=== PATIENT | female | born 1945 | race Caucasian/White ===

== ENCOUNTER 2019-04-03 12:25 | Inpatient (IN) ==
[2019-04-03 13:47] LABS: BUN Creatinine Ratio 19.9 (10-20); Calcium 9.5 mg/dl (8.5-10.1); Creatinine Clr Calc Pharmacy 42.8 ml/min; Est GFR (Non-African American) 43.2; Potassium 3.9 mmol/L (3.5-5.1)
[2019-04-03 13:49] LABS: INR 1.1 (0.9-1.1); Partial Thromboplastin Ratio 0.8; Prothrombin Time 10.9 Seconds (9.0-12.0)
[2019-04-03] MEDS ORDERED: IOVERSOL 100ml IV PRN (14:11)
[2019-04-03 14:22] LABS: Basophils # (auto) 0.01 K/uL (0-0.2); Basophils % (auto) 0.1 %; Eosinophils # (auto) 0.08 K/uL (0-0.5); Eosinophils % (auto) 0.7 %; Hematocrit (blood only) 35.2 % (37-47); Hemoglobin 11.9 g/dL (12.0-16.0); Immature Granulocytes # (auto) 0.08 K/uL (0.00-0.02); Immature Granulocytes % (auto) 0.7 %; Lymphocytes % (auto) 7.4 %; Mean Corpuscular Hemoglobin 30.1 pg (25-34); Mean Corpuscular Hgb Conc 33.8 g/dL (32-36); Mean Corpuscular Volume 89.1 fL (80-100); Mean Platelet Volume 12.6 fL (7.4-10.4); Monocytes # (auto) 0.62 K/uL (0.11-0.59); Monocytes % (auto) 5.7 %; Neutrophils % (auto) 85.4 %; Platelet Count 150 K/uL (130-400); RDW Coefficient of Variation 12.8 % (11.5-14.5); RDW Standard Deviation 41.4 fL (36.4-46.3); Red Blood Count 3.95 M/uL (4.2-5.4); White Blood Count 10.79 K/uL (4.8-10.8)
--- NOTE | 2019-04-03 14:37 | CT Scan Report ---
CT SCAN OF THE CERVICAL SPINE CLINICAL HISTORY: Trauma. Fall down stairs. COMPARISON STUDY: No priors. TECHNIQUE: CT scan of the cervical spine is performed from the skull base to the upper thoracic spine . Images are reviewed in the axial, sagittal, and coronal planes. IV contrast was not administered fo r this examination. A dose lowering technique was utilized adhering to the principles of ALARA. CT DOSE: 2079.43 mGy.cm FINDINGS: Skeletal structures: The skeletal structures are osteopenic. There is a moderate acute superior endpl ate compression fracture of C7. This extends into the posterior elements on the right, involving the pedicle and right facet. Fracture also involves the right lamina of C7. There is also fracture involv ing the inferior facet of C6 on the right. There is also a fracture at the tip of the right transvers e process of C6 seen on axial image #364. There is likely a small avulsion fracture identified along the posterior/inferior aspect of the left lateral mass of C1, best seen on axial image #137 and coron al image #40. Vertebral body height is maintained from C2-C6. Alignment is preserved. There is straig htening of the cervical lordosis. Anterior osteophytes are seen throughout. The odontoid process and lateral masses are intact. The atlantoaxial articulation is preserved. The spinous processes appear i ntact. Intervertebral discs: There is moderate to advanced disc space narrowing seen at C4-C5 and C5-C6. Mod erate disc space narrowing is seen at C3-C4. Central canal: Posterior disc osteophyte complexes at C4-C5 and C5-C6 likely contribute to acquired c ompromise of the central canal. Soft tissues: There is atherosclerotic calcification of the carotid bulbs. There is prevertebral soft tissue edema at C7. There is intramuscular hemorrhage identified within the right lateral paraspinou s musculature with surrounding inflammation this extends from C4-C5 to C7-T1. Calvarium: There is a nonobstructed fracture of the right occipital condyle, best seen on axial image #100. The visualized calvarium at the skull base otherwise appears intact. Brain parenchyma: Partially visualized brain parenchyma the skull base is within normal limits. Sinuses and mastoids: The visualized paranasal sinuses are clear. The mastoid air cells are well pneu matized. Lung apices: Clear as visualized. IMPRESSION: 1. There is a nondistracted fracture of the right occipital condyle. 2. There is a moderate acute compression fracture of C7. No retropulsed fragments are identified. 3. The C7 fracture involves the posterior elements on the right including the pedicle, lamina, and fa cet joint. This may be unstable. 4. There is also fracture involving the right inferior facet joint of C6. 5. There is fracture at the tip of the right transverse process of C6. 6. There is likely a small avulsion fracture from the posterior/inferior aspect of the left lateral m ass of C1. 7. There is intramuscular hemorrhage identified within the right lateral paraspinous musculature. Electronically signed by: Anish Salinas M.D. 04/03/2019 2:34 PM
--- NOTE | 2019-04-03 14:38 | CT Scan Report ---
CT SCAN OF THE BRAIN WITHOUT IV CONTRAST CLINICAL HISTORY: Trauma. Fall down stairs. COMPARISON STUDY: No priors. TECHNIQUE: Unenhanced axial CT scan of the brain is performed from the vertex to the skull base. A do se lowering technique was utilized adhering to the principles of ALARA. FINDINGS: Brain parenchyma: There are age-related involutional changes noting moderate subcortical and periven tricular microangiopathic change. There is no hemorrhage, mass effect, or evidence of acute territori al ischemia by CT criteria. Andrade-white matter differentiation is preserved. No extra-axial fluid ellen ection is seen. Ventricles, sulci, cisterns: Prominent secondary to involutional change. Intracranial vasculature: There is atherosclerotic calcification of the cavernous carotid and vertebr al arteries. Calvarium: Skeletal structures are osteopenic. No depressed calvarial fracture is identified. Soft tissues: Scalp hematoma overlies the left convexity towards the vertex. There is also a left occ ipital scalp contusion. Sinuses and mastoids: The visualized paranasal sinuses are clear. The mastoid air cells are well pneu matized. Orbits: The bony orbits are grossly intact. There are bilateral ocular lens implants. IMPRESSION: 1. There is no hemorrhage, mass effect, or evidence of acute territorial ischemia by CT criteria. 2. Scalp injuries as above. Electronically signed by: Anish Salinas M.D. 04/03/2019 2:37 PM
--- NOTE | 2019-04-03 14:48 | CT Scan Report ---
CT SCAN OF THE ABDOMEN AND PELVIS WITH IV CONTRAST CLINICAL HISTORY: Trauma. Fall down stairs. COMPARISON STUDY: No priors. TECHNIQUE: Following the IV administration of 94 cc of Optiray 320, CT scan of the abdomen and pelvi s is performed from the lung bases to the proximal femora. Images are reviewed in the axial, sagittal , and coronal planes. IV contrast was administered without complication. A dose lowering technique wa s utilized adhering to the principles of ALARA. FINDINGS: Lung bases: The heart is normal in size and without pericardial effusion. The coronary arteries are d ensely calcified. The lung bases are clear. There is no basilar pneumothorax. Liver: The contrast-enhanced liver is normal in size, contour, and attenuation. There is mild to mode rate intrahepatic biliary ductal dilatation. The hepatic veins and portal veins are patent. Gallbladder: Surgically absent. The common bile duct is dilated measuring up to 2 cm in diameter. Spleen: Normal in size and attenuation. Pancreas: Unremarkable. Adrenal glands: Unremarkable. Kidneys: The contrast enhanced kidneys demonstrate cortical atrophy and are without hydronephrosis. T he kidneys enhance symmetrically. A 2.0 cm cyst is noted in the left kidney. Abdominal vasculature: The abdominal aorta is normal in course and caliber noting moderate to advance d atherosclerotic calcification. Bowel: There is rectosigmoid fecal impaction and moderate constipation. No bowel obstruction is seen. There is moderate colonic diverticulosis without CT evidence of acute diverticulitis a large duodena l diverticulum is noted. The appendix is not identified and reported surgically absent. Peritoneum: There is no intraperitoneal free air or abdominal ascites. Lymphadenopathy: None. Pelvic viscera: Evaluation of the pelvis is degraded by streak artifact from bilateral hip arthroplas ties. The bladder, uterus, and adnexa are normal as visualized. Skeletal structures: The skeletal structures are osteopenic. There is mokm-sf-fydkhode lumbosacral sp ondylosis and scoliosis. No lytic or blastic lesions are seen. Bilateral hip arthroplasties are in pl kate. Soft tissues: Soft tissue contusion is noted in the left gluteal region and in the lower back. IMPRESSION: 1. There is no evidence of solid organ injury in the abdomen or pelvis. 2. No fracture is identified. 3. Soft tissue contusion is noted in the left gluteal region and in the lower back. 4. There is rectosigmoid fecal impaction and moderate constipation. 5. There is intra and extrahepatic biliary ductal dilatation, likely related to previous cholecystect carolyn. Correlation with serum bilirubin levels is recommended. 6. Additional findings as above. Electronically signed by: Anish Salinas M.D. 04/03/2019 2:46 PM
--- NOTE | 2019-04-03 15:32 | XRay Report ---
SINGLE VIEW PELVIS; SINGLE VIEW RIGHT HIP; 3 VIEWS LEFT FEMUR CLINICAL HISTORY: Fall. FINDINGS: An AP view of the pelvis, and AP view of the right hip, with AP, frog-leg, and lateral view s of the left hip are obtained. Correlation is made with pelvic CT performed the same day 04/03/2019. The skeletal structures are osteopenic. There is no radiographic evidence of fracture involving the h ips or bony pelvis. There is no radiographic evidence of left femoral fracture. Bilateral hip arthrop lasties are in near-anatomic alignment. No periprosthetic lucency is identified. Bony overgrowth is n oted along the lesser trochanter of the left femur. Degenerative sclerosis is noted in the sacroiliac joints. Lumbosacral spondylosis is partially imaged. There is atherosclerotic calcification of the f emoral arteries. Excreted IV contrast fills the bladder. No bowel obstruction is seen. IMPRESSION: 1. There is no radiographic evidence of acute fracture involving the hips or bony pelvis. 2. There is no radiographic evidence of left femoral fracture. Electronically signed by: Anish Salinas M.D. 04/03/2019 3:31 PM
[2019-04-03] MEDS ORDERED: MoRPHine SULFATE 4 MG/ML 1 ML CARP\\VIAL IV STA (15:35)
[2019-04-03] MEDS ORDERED: ONDANSETRON INJ 2 MG/ML 2 ML VIAL IV STA (15:35)
--- NOTE | 2019-04-03 15:38 | XRay Report ---
SINGLE VIEW CHEST CLINICAL HISTORY: Fall. FINDINGS: An AP, portable, supine chest radiograph is obtained. No prior studies are available for co mparison at the time of dictation. The examination is degraded by portable technique and apical lordo tic positioning. The heart is top normal for projection noting atherosclerotic calcification of the t horacic aorta. The lungs and pleural spaces are clear. No pneumothorax is seen. The skeletal structur es are osteopenic. The bony thorax is grossly intact. IMPRESSION: No acute cardiopulmonary abnormality is identified. Electronically signed by: Anish Salinas M.D. 04/03/2019 3:36 PM
--- NOTE | 2019-04-03 15:40 | XRay Report ---
RIGHT SHOULDER 3 VIEWS CLINICAL HISTORY: Fall. Right shoulder injury. FINDINGS: 3 views of the right shoulder are obtained. No prior studies are available for comparison a t the time of dictation. The skeletal structures are osteopenic. There is no radiographic evidence of right shoulder fracture or dislocation. Minimal productive change is noted at the acromioclavicular joint. The glenohumeral articulation is preserved. Mild spurring is seen along the inferior aspect of the humeral head. Degenerative sclerosis is noted in the greater tuberosity. The overlying soft tiss ues are within normal limits. Visualized right upper lobe lung parenchyma appears clear. IMPRESSION: No acute bony abnormality is identified. Electronically signed by: Anish Salinas M.D. 04/03/2019 3:39 PM
--- NOTE | 2019-04-03 15:42 | XRay Report ---
LEFT ELBOW 3 VIEWS CLINICAL HISTORY: Fall with left elbow injury. FINDINGS: 3 views of the left elbow are obtained. No prior studies are available for comparison at th e time of dictation. The examination is degraded by inability to properly position the patient. The s keletal structures are osteopenic. There is a minimally distracted fracture through the olecranon pro cess of the ulna with overlying soft tissue edema. No additional fracture is clearly identified. No d islocation is seen. The presence of a joint effusion cannot be assessed due to lack of a true lateral examination. IMPRESSION: 1. There is a minimally distracted fracture through the olecranon process of the ulna with overlying soft tissue edema. 2. No additional fracture is clearly identified. Electronically signed by: Anish Salinas M.D. 04/03/2019 3:41 PM
[2019-04-03] MEDS ORDERED: CLINDAMYCIN 300 MG in DEXTROSE 5% 50 ML IV ONE (16:41)
[2019-04-03] MEDS ORDERED: DIPHTHERIA/TETANUS/PERTUSSIS 0.5 ML SYR/VIAL IM ONE (17:14)
--- NOTE | 2019-04-03 18:19 | CT Scan Report ---
CT SCAN OF THE LEFT ELBOW WITHOUT IV CONTRAST CLINICAL HISTORY: Fall. Trauma. Open fracture. COMPARISON STUDY: Radiographs of the left elbow performed the same day 04/03/2019. TECHNIQUE: CT scan of the left elbow is performed from the distal humeral shaft to the proximal radiu s and ulna. Images are reviewed in the axial, sagittal, and coronal planes. 3-D reformats are created and assessed. IV contrast was not administered for this examination. A dose lowering technique was u tilized adhering to the principles of ALARA. CT DOSE: 282.55 mGy.cm FINDINGS: The skeletal structures are osteopenic. There is a comminuted fracture through the olecrano n process of the ulna with distracted fragments and intra-articular extension. The distal humerus and the proximal radius appear intact. There is no evidence of dislocation. There is a joint effusion, w ith small foci of gas within the joint space. Dorsal soft tissue injury and edema is noted. The regio nal musculature is normal as imaged. No radiodense foreign body is identified. IMPRESSION: 1. There is a comminuted fracture of the olecranon process as above with overlying soft tissue injury . 2. There is a joint effusion as well as gas within the joint space consistent with the reported histo ry of an open fracture. 3. No additional fracture is identified. Electronically signed by: Anish Salinas M.D. 04/03/2019 6:17 PM
[2019-04-03] MEDS ORDERED: BACITRACIN INJ 50,000 UNIT VIAL ONE (18:41)
--- NOTE | 2019-04-03 18:44 | History & Physical Report ---
Date of Service April 03, 2019 Assessment & Plan (1) C6 cervical fracture: CT cervical spines shows multiple fractures including a possibly unstable C6 fracture. I discussed these findings with Dr. Shore and received his recs. C-collar overnight, including sleeping & bedrest. I instructed her clearly to alert nursing if she feels there is any change in her strength or sensation in the hands/arms or legs/toes. I did discuss the area of intramuscular hemorrhage, and he felt this would be stable overnight. I also discussed the issues with Dr. Ho who agreed with these recommendations. - C-collar overnight - Full liquid diet given collar - Bedrest until cleared by Dr. Shore - Neurochecks Q4h - Pain control - Hold ASA (2) Elbow fracture, left: CT elbow on 04/03 shows comminuted fracture of the olecranon process as above with overlying soft tissue injury. - Plan for washout with Dr. Ho tonight - Follow up per orthopedics (3) Lupus: No current flare. Pain under control with opiate pain meds for her neck/elbow. - Continue Plaquenil (4) Arthritis: - Restart calcium and vitamin D once able to sit up more and swallow more easily. - Pain control with opiates given present surgical needs (5) Hypertension: BP is 112/60 in the ED. - Hold valsartan until after surgery and seen by Dr. Shore. - Monitor BP (6) DVT prophylaxis: SCDs - Low DVT risk per admission calculator & also chemoprophylaxis contraindicated with bleeding near cervical fractures and given she is going to OR tonight. History of Present Illness Primary Care Provider: NO PCP 73yo F w/ hx of arthritis and HTN who presents with cervical fractures after a fall down 10 steps. She reports she was at her son's house and turned the wrong direction in the dark and fell down 10 steps. She was brought to the ED and found to have cervical fractures in C1, C6, and C7 with the C6 fracture being possibly unstable. There was also intramuscular hemorrhage identified within the right lateral paraspinous musculature with surrounding inflammation this extends from C4-C5 to C7-T1 seen. She has completely normal sensation and motor skills in the fingers and hands on both sides. She also has an open fracture in the left elbow which Dr. Ho plans to wash-out tonight. She reports she is normally very health and works out at water aerobics for an hour 1-2 times per week without chest pain or shortness of breath. Allergies Allergy/AdvReac Type Severity Reaction Status Date / Time Penicillins Allergy Mild Hives Unverified 04/03/19 14:01 Home Medications Home Medications Medication Instructions Recorded Confirmed Type acetaminophen [Tylenol Arthritis 650 mg PO DAILY 04/03/19 04/03/19 History Pain] aspirin 81 mg PO DAILY 04/03/19 04/03/19 History calcium carbonate [Calcium 600] 600 mg PO DAILY 04/03/19 04/03/19 History cholecalciferol (vitamin D3) 1,000 unit PO DAILY 04/03/19 04/03/19 History [Vitamin D3] famotidine 20 mg PO BID 04/03/19 04/03/19 History hydroxychloroquine 200 mg PO BID 04/03/19 04/03/19 History rosuvastatin 40 mg PO DAILY 04/03/19 04/03/19 History valsartan 160 mg PO DAILY 04/03/19 04/03/19 History Past Med/Surg History Medical History Lupus (Chronic) Arthritis (Chronic) Hypertension Family History Other No significant family history Social History Preferred Language: Haitian Feels Safe at Home: Yes Smoking Status: Former smoker Review of Systems Constitutional: no fever, no chills and no sweats Eyes: no diplopia Ear, Nose, Mouth, Throat: no ear trauma, no nasal discharge and no dental pain Respiratory: no cough, no chest congestion and no dyspnea Cardiovascular: no chest pain, no dyspnea on exertion, no palpitations and no syncope Gastrointestinal: no abdominal pain, no belching, no constipation, no diarrhea/loose stools, no blood in stools and no melena Musculoskeletal: + neck pain and + joint pain; no back pain, no myalgia and no muscle weakness Integumentary: no rash, no skin ulcer and no erythema Neurologic: no loss of sensation, no numbness, no paresthesia, no lack of coordination, no tremor(s), no abnormal movements and no syncope Psychiatric: no depression and no anxiety Endocrine: no fatigue, no polydipsia and no polyphagia Results & Data Vital Signs (Past 12 Hours) Vital Signs Temp Pulse Resp BP Pulse Ox 04/03/19 18:10 97 04/03/19 18:00 96 04/03/19 17:50 89 L 04/03/19 17:45 97 04/03/19 17:20 83 20 91 04/03/19 17:10 85 17 95 04/03/19 17:01 79 98 04/03/19 17:00 79 112/59 L 95 04/03/19 16:50 80 94 04/03/19 16:40 94 H 15 98 04/03/19 16:31 78 15 96 04/03/19 16:30 74 20 88/52 L 97 04/03/19 16:20 82 16 99 04/03/19 16:10 81 19 100 04/03/19 16:02 91 H 17 97/64 L 98 04/03/19 16:00 85 19 100 04/03/19 15:59 100 04/03/19 14:40 100 04/03/19 14:35 100 04/03/19 14:34 145/67 H 100 04/03/19 13:50 76 17 100 04/03/19 13:40 76 19 99 04/03/19 13:30 78 18 100 04/03/19 13:20 73 23 04/03/19 13:10 79 16 97 04/03/19 13:03 78 29 H 99 04/03/19 12:36 77 19 149/75 H 99 04/03/19 12:17 36.5 C 79 18 149/75 H 99 PG Care Time/CCT Total # of Minutes Spent Total Time Spent with Patient: Total time spent is greater than 50% in coordination of care (as documented) at patient's floor/unit and/or counseling patient:
--- NOTE | 2019-04-03 18:56 | Anesthesiology Consultation ---
Date of Service April 03, 2019 Assessment & Plan Chart Review Chart Review: Acceptable Risk for Surgery Pt has multiple acute C spine fractures and open fracture left olecranon. Discussed with orthopedist who prescribed C spine fixation with hard collar and urgent surgical treatment of LUE. Consults Requested none ASA [id number] Proposed Anesthesia Anesthesia Type: General History Surgery Operation Date: 04/03/19 18:30 Proposed Procedures p Open Reduction Internal Fixation Afua - Ronaldo Ho MD Height/Weight Height: 5 ft 5 in Weight: 83.5 kg Allergies Allergy/AdvReac Type Severity Reaction Status Date / Time Penicillins Allergy Mild Hives Unverified 04/03/19 14:01 Medications Home Medications Medication Instructions Recorded Confirmed Last Taken acetaminophen [Tylenol Arthritis 650 mg PO DAILY 04/03/19 04/03/19 Unknown Pain] aspirin 81 mg PO DAILY 04/03/19 04/03/19 Unknown calcium carbonate [Calcium 600] 600 mg PO DAILY 04/03/19 04/03/19 Unknown cholecalciferol (vitamin D3) 1,000 unit PO DAILY 04/03/19 04/03/19 Unknown [Vitamin D3] famotidine 20 mg PO BID 04/03/19 04/03/19 Unknown hydroxychloroquine 200 mg PO BID 04/03/19 04/03/19 Unknown rosuvastatin 40 mg PO DAILY 04/03/19 04/03/19 Unknown valsartan 160 mg PO DAILY 04/03/19 04/03/19 Unknown Active Medications Generic Name Dose Route Start Last Admin Trade Name Freq PRN Reason Stop Dose Admin Ioversol 94 ml 04/03/19 14:11 04/03/19 14:12 Optiray 320 100ml IV 04/07/19 14:10 94 ml ONCE PRN Administration Interaction Checking Past Medical History Medical History Lupus (Chronic) Arthritis (Chronic) Hypertension Past Family History Family History Other No significant family history Social History Smoking Status: Former smoker Physical Exam Vital Signs Last Vital Signs Temp 36.5 C 04/03/19 12:17 Pulse 83 04/03/19 17:20 Resp 20 04/03/19 17:20 BP 112/59 L 04/03/19 17:00 Pulse Ox 97 04/03/19 18:10 Testing Laboratory Results 04/03/19 13:08 04/03/19 13:08 PT 10.9 Seconds (9.0-12.0) 04/03/19 13:08 INR 1.1 (0.9-1.1) 04/03/19 13:08 APTT 23.0 Seconds (21.0-31.0) 04/03/19 13:08 04/03/19 13:34 POC Glucose 105 H
[2019-04-03] MEDS ORDERED: PROPOFOL IV EMULSION 10 MG/ML 20 ML VIAL IV ONE (19:11)
[2019-04-03] MEDS ORDERED: MIDAZOLAM HCL 1 MG/ML 2ML VIAL ONE (19:11)
[2019-04-03] MEDS ORDERED: fentaNYL citrate 100 MCG/2 ML VIAL ONE (19:11)
--- NOTE | 2019-04-03 20:13 | Emergency Department Note ---
Entered by Burton Guaman acting as a scribe for Oni Duggan History of Present Illness General Chief complaint: Fall Time Seen by Provider: 04/03/19 12:57 Source: patient and other (ED nurse) History of Present Illness Onset (ago): hour(s) (earlier today) Location: upper extremity (pain from fall) Pain Consistency: + other (episode) Maximum Pain Intensity: 0 Relieved By: + none Associated symptoms: + denies other symptoms (abdominal pain) and + other (right shoulder pain, neck pain, back pain, and groin pain) The patient is a 73 year old F who presents to the Emergency Room with complaints of an episode of a fall that occurred earlier today. The patient states that today around noon, she thought that she was walking into a bathroom. She adds that the lights were not on and that it was hard to see. She notes that it was actually a flight of stairs and adds that she fell down them. The ED nurse states that the flight of stairs consisted of 10-12 stairs. The patient states that she is currently experiencing right shoulder pain, neck pain, back pain, and groin pain. She adds that the right side of her groin hurts more than the left. She denies that she is currently experiencing abdominal pain. She notes that she is currently on an arthritis spray, lupus medication, and acetaminophen. She denies being on a blood thinning medication. Home Medications Home Medications Medication Instructions Recorded Confirmed Type acetaminophen [Tylenol Arthritis 650 mg PO DAILY 04/03/19 04/03/19 History Pain] aspirin 81 mg PO DAILY 04/03/19 04/03/19 History calcium carbonate [Calcium 600] 600 mg PO DAILY 04/03/19 04/03/19 History cholecalciferol (vitamin D3) 1,000 unit PO DAILY 04/03/19 04/03/19 History [Vitamin D3] famotidine 20 mg PO BID 04/03/19 04/03/19 History hydroxychloroquine 200 mg PO BID 04/03/19 04/03/19 History rosuvastatin 40 mg PO DAILY 04/03/19 04/03/19 History valsartan 160 mg PO DAILY 04/03/19 04/03/19 History Allergies Allergy/AdvReac Type Severity Reaction Status Date / Time Penicillins Allergy Mild Hives Unverified 04/03/19 14:01 Past Med/Surg History Medical History Lupus (Chronic) Arthritis (Chronic) Hypertension Family History Other No significant family history Social History Preferred Language: Ukrainian Feels Safe at Home: Yes Smoking Status: Former smoker Review of Systems See HPI for pertinent positives & negatives. and A total of 10 systems reviewed and were otherwise negative Physical Exam Vital Signs Vital Signs - 24 hr 04/03/19 12:17 04/03/19 12:36 04/03/19 13:03 Temperature 36.5 C Temperature Source Oral Sepsis Recent Fever Within 48 Hours No Sepsis New/Unexplained Change in Mental Status No Sepsis Action Taken by Nursing No Action Required Pulse Rate 79 77 78 Pulse Rate from SpO2 Sensor 78 78 Pulse Rhythm Regular Pulse Strength Normal Respiratory Rate 18 19 29 H Respiratory Effort / Characteristics Non-Labored Spontaneous Respiratory Depth Normal Respiratory Pattern Regular Blood Pressure 149/75 H 149/75 H Blood Pressure Mean 99 99 Blood Pressure Position Lying Pulse Oximetry 99 99 99 Oxygen Delivery Method Room Air 04/03/19 13:10 04/03/19 13:20 04/03/19 13:30 Temperature Temperature Source Sepsis Recent Fever Within 48 Hours Sepsis New/Unexplained Change in Mental Status Sepsis Action Taken by Nursing Pulse Rate 79 73 78 Pulse Rate from SpO2 Sensor 79 79 Pulse Rhythm Pulse Strength Respiratory Rate 16 23 18 Respiratory Effort / Characteristics Respiratory Depth Respiratory Pattern Blood Pressure Blood Pressure Mean Blood Pressure Position Pulse Oximetry 97 100 Oxygen Delivery Method 04/03/19 13:40 04/03/19 13:50 04/03/19 14:34 Temperature Temperature Source Sepsis Recent Fever Within 48 Hours Sepsis New/Unexplained Change in Mental Status Sepsis Action Taken by Nursing Pulse Rate 76 76 Pulse Rate from SpO2 Sensor 77 77 86 Pulse Rhythm Pulse Strength Respiratory Rate 19 17 Respiratory Effort / Characteristics Respiratory Depth Respiratory Pattern Blood Pressure 145/67 H Blood Pressure Mean 93 Blood Pressure Position Pulse Oximetry 99 100 100 Oxygen Delivery Method 04/03/19 14:35 04/03/19 14:40 04/03/19 15:59 Temperature Temperature Source Sepsis Recent Fever Within 48 Hours Sepsis New/Unexplained Change in Mental Status Sepsis Action Taken by Nursing Pulse Rate Pulse Rate from SpO2 Sensor 85 83 87 Pulse Rhythm Pulse Strength Respiratory Rate Respiratory Effort / Characteristics Respiratory Depth Respiratory Pattern Blood Pressure Blood Pressure Mean Blood Pressure Position Pulse Oximetry 100 100 100 Oxygen Delivery Method 04/03/19 16:00 04/03/19 16:02 04/03/19 16:10 Temperature Temperature Source Sepsis Recent Fever Within 48 Hours Sepsis New/Unexplained Change in Mental Status Sepsis Action Taken by Nursing Pulse Rate 85 91 H 81 Pulse Rate from SpO2 Sensor 85 90 83 Pulse Rhythm Pulse Strength Respiratory Rate 19 17 19 Respiratory Effort / Characteristics Respiratory Depth Respiratory Pattern Blood Pressure 97/64 L Blood Pressure Mean 75 Blood Pressure Position Pulse Oximetry 100 98 100 Oxygen Delivery Method 04/03/19 16:20 04/03/19 16:30 04/03/19 16:31 Temperature Temperature Source Sepsis Recent Fever Within 48 Hours Sepsis New/Unexplained Change in Mental Status Sepsis Action Taken by Nursing Pulse Rate 82 74 78 Pulse Rate from SpO2 Sensor 82 74 78 Pulse Rhythm Pulse Strength Respiratory Rate 16 20 15 Respiratory Effort / Characteristics Respiratory Depth Respiratory Pattern Blood Pressure 88/52 L Blood Pressure Mean 64 Blood Pressure Position Pulse Oximetry 99 97 96 Oxygen Delivery Method 04/03/19 16:40 04/03/19 16:50 04/03/19 17:00 Temperature Temperature Source Sepsis Recent Fever Within 48 Hours Sepsis New/Unexplained Change in Mental Status Sepsis Action Taken by Nursing Pulse Rate 94 H 80 79 Pulse Rate from SpO2 Sensor 93 H 81 79 Pulse Rhythm Pulse Strength Respiratory Rate 15 Respiratory Effort / Characteristics Respiratory Depth Respiratory Pattern Blood Pressure 112/59 L Blood Pressure Mean 76 Blood Pressure Position Pulse Oximetry 98 94 95 Oxygen Delivery Method 04/03/19 17:01 04/03/19 17:10 04/03/19 17:20 Temperature Temperature Source Sepsis Recent Fever Within 48 Hours Sepsis New/Unexplained Change in Mental Status Sepsis Action Taken by Nursing Pulse Rate 79 85 83 Pulse Rate from SpO2 Sensor 79 85 83 Pulse Rhythm Pulse Strength Respiratory Rate 17 20 Respiratory Effort / Characteristics Respiratory Depth Respiratory Pattern Blood Pressure Blood Pressure Mean Blood Pressure Position Pulse Oximetry 98 95 91 Oxygen Delivery Method 04/03/19 17:45 04/03/19 17:50 04/03/19 18:00 Temperature Temperature Source Sepsis Recent Fever Within 48 Hours Sepsis New/Unexplained Change in Mental Status Sepsis Action Taken by Nursing Pulse Rate Pulse Rate from SpO2 Sensor 81 80 83 Pulse Rhythm Pulse Strength Respiratory Rate Respiratory Effort / Characteristics Respiratory Depth Respiratory Pattern Blood Pressure Blood Pressure Mean Blood Pressure Position Pulse Oximetry 97 89 L 96 Oxygen Delivery Method 04/03/19 18:10 Temperature Temperature Source Sepsis Recent Fever Within 48 Hours Sepsis New/Unexplained Change in Mental Status Sepsis Action Taken by Nursing Pulse Rate Pulse Rate from SpO2 Sensor 86 Pulse Rhythm Pulse Strength Respiratory Rate Respiratory Effort / Characteristics Respiratory Depth Respiratory Pattern Blood Pressure Blood Pressure Mean Blood Pressure Position Pulse Oximetry 97 Oxygen Delivery Method GENERAL: She is oriented to person, place, and time. She appears well-developed and well-nourished. She does not appear distressed. HENT: Exam performed. - Head: Normocephalic and atraumatic. - Right Ear: External ear normal. No mastoid tenderness. - Left Ear: External ear normal. No mastoid tenderness. - Mouth/Throat: The oropharynx is clear and moist. No trismus in the jaw. No dental abscesses or uvula swelling. No oropharyngeal exudate or tonsillar abscesses. EYES: Conjunctivae and EOM are normal. Pupils are equal, round, and reactive to light. Right eye exhibits no discharge. Left eye exhibits no discharge. No scleral icterus. NECK: In C-collar. CV: Normal rate, regular rhythm, normal heart sounds and intact distal pulses. There is no peripheral edema. Palpable radial pulses bue. PULM/CHEST: Effort normal and breath sounds normal. No respiratory distress. No stridor. She has no wheezes. She has no rales. Chest Wall: She exhibits no tenderness. ABD: The abdomen is soft. Bowel sounds are normal. She has no distension. No mass is present. There is no tenderness. There is no rebound, no guarding, no Jeronimo's sign and no tenderness at McBurney's point. Rovsig negative MUSC/SKEL: Pain on palpation of c-spine, no pain on palpation of t-spine or l- spine, pelvis is stable, pain on palpation of left elbow, pain on palpation of left pelvis, and pain on palpation of right shoulder. Small 1 cm laceration over the left elbow over the olecranon. There is no active bleeding or exposed bone. LYMPH: No cervical adenopathy. NEURO: She is alert and oriented to person, place, and time. She has normal strength. No cranial nerve deficit or sensory deficit. Coordination and gait normal. GCS eye subscore is 4. GCS verbal subscore is 5. GCS motor subscore is 6. cerbellar tests wnl. PSYCH: She has a normal mood and affect. Her behavior is normal. Judgment and thought content normal. Procedures FAST Exam FAST Exam 1: Fluid in Morison's pouch: No Fluid in Splenorenal Junction: No Fluid around bladder, Transverse view: No Fluid around bladder, Sagittal view: No Fluid in Pericardial Sac: No Gross Wall Motion Abnormality: No Study normal for this patient: Yes Images saved for further review: Yes Course 1257: The patient was evaluated in room B11B. A complete history and physical exam was performed. 1317: I performed a FAST exam on the patient which was negative. See procedure note. 1602: Vital signs stable. Patient still having significant amounts of pain. Analgesia ordered in the emergency department. Labs within normal limits CT of the head shows no hemorrhage or calvarial fracture. CT of the C-spine shows non-distracted fracture of the right occipital condyle. Moderate acute compression fracture of C7. No retropulsed fragments. C7 fracture involves the posterior elements including the right pedicle, lamina, and facet joint. Is also fracture of the right inferior facet of C6 and right transverse process of C6. Likely a small avulsion fracture from the posterior/inferior aspect of the lateral mass of C1. There is intramuscular hemorrhage identified within the right lateral paraspinous musculature. I reviewed the patient's case and CT reports verbatim with Dr. Shore, [facility] [place] [place]. He states that there is no emergent surgical intervention needed at this time and that the patient should be placed in a [place] J collar. Dr. Arndt said that the patient could follow-up with him in the clinic, however both the patient and I feel that the patient should be admitted for pain management as well as possible rehab. Dr. Arndt was comfortable with the patient be admitted to the hospitalist service with him on consult for the cervical structures. 1631: CT of the abdomen showed no evidence of solid injury in the abdomen or pelvis. X-rays of shoulder, femur, pelvis, and chest showed no traumatic injuries. X-ray of the elbow showed a minimally distracted fracture through the olecranon process of the ulna. Given the laceration over the elbow, this patient appears to have an open fracture and it appears to be Gustillo classification type I open fracture. I reviewed the patient's case with Dr. Ho, [facility] [place] [place]. He states that he wants to come into the ED to see the fracture and does not want me to close it right now. 1718: Dr. Ho evaluated the patient at bedside. He wants me to put the patient in a posterior splint with betadine. Patient has a severe history to penicillin and therefore Ancef will not be given and he said clindamycin was ordered. Dr. Ho states that he is okay with giving the patient clindamycin. He states that he wants a CT scan of the patient's elbow. He notes that he will take the patient to the OR for a washout. 1720: I reviewed the patient's case with Dr. Rivera, [facility] Hospitalist. He states he does not think that the patient should be admitted to his service as they have traumatic injuries. I did explain to him that both Dr. Shore ortho spine and Dr. Ho orthopedics agreed to be on consult and stated they were comfortable managing their respective orthopedic injuries at this facility. Dr. Rivera stated he will discuss with his hospitalist colleague and get back to us regarding admission. 1820: Dr. Mcclure met in the hospitalist came down to evaluate the patient. He stated he spoke with Dr. Shore and Dr. Ho and after discussing with them he agreed to admit the patient with both orthopedist on consult. 1850: Dr. Ho viewed the CT scan and took the patient to the OR. Administered Medications Ioversol (Optiray 320 100ml) 94 ml IV ONCE PRN PRN Reason: Interaction Checking Stop: 04/07/19 14:10 Last Admin: 04/03/19 14:12 Dose: 94 ml Documented by: [id number] Discontinued Medications Diphtheria/Pertussis/Tetanus Vacc (Adacel) 0.5 ml IM .ONCE ONE Stop: 04/03/19 17:15 Last Admin: 04/03/19 18:07 Dose: 0.5 ml Documented by: [id number] Clindamycin Phosphate 300 mg/ (Dextrose) 52 mls @ 100 mls/hr IV ONE ONE Stop: 04/03/19 17:12 Last Infusion: 04/03/19 17:44 Dose: 0 mls/hr Documented by: [id number] Admin: 04/03/19 17:10 Dose: 100 mls/hr Documented by: [id number] Morphine Sulfate (Morphine Sulfate) 4 mg IV NOW STA Stop: 04/03/19 15:36 Last Admin: 04/03/19 16:05 Dose: 4 mg Documented by: [id number] Ondansetron HCl (Zofran) 4 mg IV NOW STA Stop: 04/03/19 15:36 Last Admin: 04/03/19 16:07 Dose: 4 mg Documented by: [id number] Medical Decision Making Medical Records Attestation: I reviewed the patient's medical records. Home Medications Current Medication List: was personally reviewed by me Laboratory Data Attestation: I reviewed the patient's lab results. Result diagrams: 04/03/19 13:08 04/03/19 13:08 Lab Results 04/03/19 04/03/19 04/03/19 Range/Units 13:08 13:08 13:08 WBC 10.79 (4.8-10.8) K/uL RBC 3.95 L (4.2-5.4) M/uL Hgb 11.9 L (12.0-16.0) g/dL Hct 35.2 L (37-47) % MCV 89.1 (80-100) fL MCH 30.1 (25-34) pg MCHC 33.8 (32-36) g/dL RDW Std Deviation 41.4 (36.4-46.3) fL RDW Coeff of Oswaldo 12.8 (11.5-14.5) % Plt Count 150 (130-400) K/uL MPV 12.6 H (7.4-10.4) fL Immature Gran % (Auto) 0.7 % Neut % (Auto) 85.4 % Lymph % (Auto) 7.4 % Ector % (Auto) 5.7 % Eos % (Auto) 0.7 % Baso % (Auto) 0.1 % Immature Gran # (Auto) 0.08 H (0.00-0.02) K/uL Neut # (Auto) 9.20 H (1.4-6.5) K/uL Lymph # (Auto) 0.80 L (1.2-3.4) K/uL Ector # (Auto) 0.62 H (0.11-0.59) K/uL Eos # (Auto) 0.08 (0-0.5) K/uL Baso # (Auto) 0.01 (0-0.2) K/uL PT 10.9 (9.0-12.0) Seconds INR 1.1 (0.9-1.1) APTT 23.0 (21.0-31.0) Seconds PTT Ratio 0.8 Sodium 141 (136-145) mmol/L Potassium 3.9 (3.5-5.1) mmol/L Chloride 108 H (98-107) mmol/L Carbon Dioxide 25 (21-32) mmol/L Anion Gap 8.0 (3-11) BUN 24 H (7-18) mg/dl Creatinine 1.23 H (0.6-1.2) mg/dl Est Cr Clr Drug Dosing 42.8 ml/min Est GFR ( Amer) 50.0 Est GFR (Non-Af Amer) 43.2 BUN/Creatinine Ratio 19.9 (10-20) Glucose 106 H (70-99) mg/dl POC Glucose (70-99) Calcium 9.5 (8.5-10.1) mg/dl 04/03/19 Range/Units 13:34 WBC (4.8-10.8) K/uL RBC (4.2-5.4) M/uL Hgb (12.0-16.0) g/dL Hct (37-47) % MCV (80-100) fL MCH (25-34) pg MCHC (32-36) g/dL RDW Std Deviation (36.4-46.3) fL RDW Coeff of Oswaldo (11.5-14.5) % Plt Count (130-400) K/uL MPV (7.4-10.4) fL Immature Gran % (Auto) % Neut % (Auto) % Lymph % (Auto) % Ector % (Auto) % Eos % (Auto) % Baso % (Auto) % Immature Gran # (Auto) (0.00-0.02) K/uL Neut # (Auto) (1.4-6.5) K/uL Lymph # (Auto) (1.2-3.4) K/uL Ector # (Auto) (0.11-0.59) K/uL Eos # (Auto) (0-0.5) K/uL Baso # (Auto) (0-0.2) K/uL PT (9.0-12.0) Seconds INR (0.9-1.1) APTT (21.0-31.0) Seconds PTT Ratio Sodium (136-145) mmol/L Potassium (3.5-5.1) mmol/L Chloride (98-107) mmol/L Carbon Dioxide (21-32) mmol/L Anion Gap (3-11) BUN (7-18) mg/dl Creatinine (0.6-1.2) mg/dl Est Cr Clr Drug Dosing ml/min Est GFR ( Amer) Est GFR (Non-Af Amer) BUN/Creatinine Ratio (10-20) Glucose (70-99) mg/dl POC Glucose 105 H (70-99) Calcium (8.5-10.1) mg/dl Imaging Data Radiologist's Impression: Radiology results as stated below per my review and the radiologist's interpretation: CT SCAN OF THE CERVICAL SPINE CLINICAL HISTORY: Trauma. Fall down stairs. COMPARISON STUDY: No priors. TECHNIQUE: CT scan of the cervical spine is performed from the skull base to the upper thoracic spine. Images are reviewed in the axial, sagittal, and coronal planes. IV contrast was not administered for this examination. A dose lowering technique was utilized adhering to the principles of ALARA. CT DOSE: 2079.43 mGy.cm FINDINGS: Skeletal structures: The skeletal structures are osteopenic. There is a moderate acute superior endplate compression fracture of C7. This extends into the posterior elements on the right, involving the pedicle and right facet. Fracture also involves the right lamina of C7. There is also fracture involving the inferior facet of C6 on the right. There is also a fracture at the tip of the right transverse process of C6 seen on axial image #364. There is likely a small avulsion fracture identified along the posterior/inferior aspect of the left lateral mass of C1, best seen on axial image #137 and coronal image #40. Vertebral body height is maintained from C2-C6. Alignment is preserved. There is straightening of the cervical lordosis. Anterior osteophytes are seen throughout. The odontoid process and lateral masses are intact. The atlantoaxial articulation is preserved. The spinous processes appear intact. Intervertebral discs: There is moderate to advanced disc space narrowing seen at C4-C5 and C5-C6. Moderate disc space narrowing is seen at C3-C4. Central canal: Posterior disc osteophyte complexes at C4-C5 and C5-C6 likely contribute to acquired compromise of the central canal. Soft tissues: There is atherosclerotic calcification of the carotid bulbs. There is prevertebral soft tissue edema at C7. There is intramuscular hemorrhage identified within the right lateral paraspinous musculature with surrounding inflammation this extends from C4-C5 to C7-T1. Calvarium: There is a nonobstructed fracture of the right occipital condyle, best seen on axial image #100. The visualized calvarium at the skull base otherwise appears intact. Brain parenchyma: Partially visualized brain parenchyma the skull base is within normal limits. Sinuses and mastoids: The visualized paranasal sinuses are clear. The mastoid air cells are well pneumatized. Lung apices: Clear as visualized. IMPRESSION: 1. There is a nondistracted fracture of the right occipital condyle. 2. There is a moderate acute compression fracture of C7. No retropulsed fragments are identified. 3. The C7 fracture involves the posterior elements on the right including the pedicle, lamina, and facet joint. This may be unstable. 4. There is also fracture involving the right inferior facet joint of C6. 5. There is fracture at the tip of the right transverse process of C6. 6. There is likely a small avulsion fracture from the posterior/inferior aspect of the left lateral mass of C1. 7. There is intramuscular hemorrhage identified within the right lateral paraspinous musculature. Electronically signed by: Anish Salinas M.D. 04/03/2019 2:[address] SCAN OF THE BRAIN WITHOUT IV CONTRAST CLINICAL HISTORY: Trauma. Fall down stairs. COMPARISON STUDY: No priors. TECHNIQUE: Unenhanced axial CT scan of the brain is performed from the vertex to the skull base. A dose lowering technique was utilized adhering to the principles of ALARA. FINDINGS: Brain parenchyma: There are age-related involutional changes noting moderate subcortical and periventricular microangiopathic change. There is no hemorrhage, mass effect, or evidence of acute territorial ischemia by CT criteria. Andrade- white matter differentiation is preserved. No extra-axial fluid collection is seen. Ventricles, sulci, cisterns: Prominent secondary to involutional change. Intracranial vasculature: There is atherosclerotic calcification of the cavernous carotid and vertebral arteries. Calvarium: Skeletal structures are osteopenic. No depressed calvarial fracture is identified. Soft tissues: Scalp hematoma overlies the left convexity towards the vertex. There is also a left occipital scalp contusion. Sinuses and mastoids: The visualized paranasal sinuses are clear. The mastoid air cells are well pneumatized. Orbits: The bony orbits are grossly intact. There are bilateral ocular lens implants. IMPRESSION: 1. There is no hemorrhage, mass effect, or evidence of acute territorial ischemia by CT criteria. 2. Scalp injuries as above. Electronically signed by: Anish Salinas M.D. 04/03/2019 2:37 PM LEFT ELBOW 3 VIEWS CLINICAL HISTORY: Fall with left elbow injury. FINDINGS: 3 views of the left elbow are obtained. No prior studies are available for comparison at the time of dictation. The examination is degraded by i nability to properly position the patient. The skeletal structures are osteopenic. There is a minimally distracted fracture through the olecranon process of the ulna with overlying soft tissue edema. No additional fracture is clearly identified. No dislocation is seen. The presence of a joint effusion cannot be assessed due to lack of a true lateral examination. IMPRESSION: 1. There is a minimally distracted fracture through the olecranon process of the ulna with overlying soft tissue edema. 2. No additional fracture is clearly identified. Electronically signed by: Anish Salinas M.D. 04/03/2019 3:41 PM SINGLE VIEW PELVIS; SINGLE VIEW RIGHT HIP; 3 VIEWS LEFT FEMUR CLINICAL HISTORY: Fall. FINDINGS: An AP view of the pelvis, and AP view of the right hip, with AP, frog- leg, and lateral views of the left hip are obtained. Correlation is made with pelvic CT performed the same day 04/03/2019. The skeletal structures are osteopenic. There is no radiographic evidence of fracture involving the hips or bony pelvis. There is no radiographic evidence of left femoral fracture. Bilateral hip arthroplasties are in near-anatomic alignment. No periprosthetic lucency is identified. Bony overgrowth is noted along the lesser trochanter of the left femur. Degenerative sclerosis is noted in the sacroiliac joints. Lumbosacral spondylosis is partially imaged. There is atherosclerotic calcification of the femoral arteries. Excreted IV contrast fills the bladder. No bowel obstruction is seen. IMPRESSION: 1. There is no radiographic evidence of acute fracture involving the hips or bony pelvis. 2. There is no radiographic evidence of left femoral fracture. Electronically signed by: Anish Salinas M.D. 04/03/2019 3:31 PM SINGLE VIEW PELVIS; SINGLE VIEW RIGHT HIP; 3 VIEWS LEFT FEMUR CLINICAL HISTORY: Fall. FINDINGS: An AP view of the pelvis, and AP view of the right hip, with AP, frog- leg, and lateral views of the left hip are obtained. Correlation is made with pelvic CT performed the same day 04/03/2019. The skeletal structures are osteopenic. There is no radiographic evidence of fracture involving the hips or bony pelvis. There is no radiographic evidence of left femoral fracture. Bilateral hip arthroplasties are in near-anatomic alignment. No periprosthetic lucency is identified. Bony overgrowth is noted along the lesser trochanter of the left femur. Degenerative sclerosis is noted in the sacroiliac joints. Lumbosacral spondylosis is partially imaged. There is atherosclerotic calcifica tion of the femoral arteries. Excreted IV contrast fills the bladder. No bowel obstruction is seen. IMPRESSION: 1. There is no radiographic evidence of acute fracture involving the hips or bony pelvis. 2. There is no radiographic evidence of left femoral fracture. Electronically signed by: Anish Salinas M.D. 04/03/2019 3:31 PM RIGHT SHOULDER 3 VIEWS CLINICAL HISTORY: Fall. Right shoulder injury. FINDINGS: 3 views of the right shoulder are obtained. No prior studies are available for comparison at the time of dictation. The skeletal structures are osteopenic. There is no radiographic evidence of right shoulder fracture or dislocation. Minimal productive change is noted at the acromioclavicular joint. The glenohumeral articulation is preserved. Mild spurring is seen along the inferior aspect of the humeral head. Degenerative sclerosis is noted in the greater tuberosity. The overlying soft tissues are within normal limits. Visualized right upper lobe lung parenchyma appears clear. IMPRESSION: No acute bony abnormality is identified. Electronically signed by: Anish Salinas M.D. 04/03/2019 3:39 PM SINGLE VIEW CHEST CLINICAL HISTORY: Fall. FINDINGS: An AP, portable, supine chest radiograph is obtained. No prior studies are available for comparison at the time of dictation. The examination is degraded by portable technique and apical lordotic positioning. The heart is top normal for projection noting atherosclerotic calcification of the thoracic aorta. The lungs and pleural spaces are clear. No pneumothorax is seen. The skeletal structures are osteopenic. The bony thorax is grossly intact. IMPRESSION: No acute cardiopulmonary abnormality is identified. Electronically signed by: Anish Salinas M.D. 04/03/2019 3:[address] SCAN OF THE ABDOMEN AND PELVIS WITH IV CONTRAST CLINICAL HISTORY: Trauma. Fall down stairs. COMPARISON STUDY: No priors. TECHNIQUE: Following the IV administration of 94 cc of Optiray 320, CT scan of the abdomen and pelvis is performed from the lung bases to the proximal femora. Images are reviewed in the axial, sagittal, and coronal planes. IV contrast was administered without complication. A dose lowering technique was utilized adhering to the principles of ALARA. FINDINGS: Lung bases: The heart is normal in size and without pericardial effusion. The coronary arteries are densely calcified. The lung bases are clear. There is no basilar pneumothorax. Liver: The contrast-enhanced liver is normal in size, contour, and attenuation. There is mild to moderate intrahepatic biliary ductal dilatation. The hepatic veins and portal veins are patent. Gallbladder: Surgically absent. The common bile duct is dilated measuring up to 2 cm in diameter. Spleen: Normal in size and attenuation. Pancreas: Unremarkable. Adrenal glands: Unremarkable. Kidneys: The contrast enhanced kidneys demonstrate cortical atrophy and are without hydronephrosis. The kidneys enhance symmetrically. A 2.0 cm cyst is no arpit in the left kidney. Abdominal vasculature: The abdominal aorta is normal in course and caliber noting moderate to advanced atherosclerotic calcification. Bowel: There is rectosigmoid fecal impaction and moderate constipation. No bowel obstruction is seen. There is moderate colonic diverticulosis without CT evidence of acute diverticulitis a large duodenal diverticulum is noted. The appendix is not identified and reported surgically absent. Peritoneum: There is no intraperitoneal free air or abdominal ascites. Lymphadenopathy: None. Pelvic viscera: Evaluation of the pelvis is degraded by streak artifact from bilateral hip arthroplasties. The bladder, uterus, and adnexa are normal as visualized. Skeletal structures: The skeletal structures are osteopenic. There is [id number] lumbosacral spondylosis and scoliosis. No lytic or blastic lesions are seen. Bilateral hip arthroplasties are in place. Soft tissues: Soft tissue contusion is noted in the left gluteal region and in the lower back. IMPRESSION: 1. There is no evidence of solid organ injury in the abdomen or pelvis. 2. No fracture is identified. 3. Soft tissue contusion is noted in the left gluteal region and in the lower back. 4. There is rectosigmoid fecal impaction and moderate constipation. 5. There is intra and extrahepatic biliary ductal dilatation, likely related to previous cholecystectomy. Correlation with serum bilirubin levels is recommended. 6. Additional findings as above. Electronically signed by: Anish Salinas M.D. 04/03/2019 2:[address] SCAN OF THE LEFT ELBOW WITHOUT IV CONTRAST CLINICAL HISTORY: Fall. Trauma. Open fracture. COMPARISON STUDY: Radiographs of the left elbow performed the same day 04/03/2019. TECHNIQUE: CT scan of the left elbow is performed from the distal humeral shaft to the proximal radius and ulna. Images are reviewed in the axial, sagittal, and coronal planes. 3-D reformats are created and assessed. IV contrast was not administered for this examination. A dose lowering technique was utilized adhering to the principles of ALARA. CT DOSE: 282.55 mGy.cm FINDINGS: The skeletal structures are osteopenic. There is a comminuted fracture through the olecranon process of the ulna with distracted fragments and intra- articular extension. The distal humerus and the proximal radius appear intact. There is no evidence of dislocation. There is a joint effusion, with small foci of gas within the joint space. Dorsal soft tissue injury and edema is noted. The regional musculature is normal as imaged. No radiodense foreign body is identified. IMPRESSION: 1. There is a comminuted fracture of the olecranon process as above with overlying soft tissue injury. 2. There is a joint effusion as well as gas within the joint space consistent with the reported history of an open fracture. 3. No additional fracture is identified. Electronically signed by: Anish Salinas M.D. 04/03/2019 6:17 PM ECG Data Attestation: I personally reviewed and interpreted this ECG as follows: Indication: + back/shoulder pain Rate (beats per minute): 89 Rhythm: + sinus rhythm ECG Intervals/blocks: + Normal QRS ECG ST segments: no ST depression and no ST elevation ECG Findings: + Other (SC, QRS, and QTc intervals within normal limits) Blood Pressure Blood Pressure Findings: Normal blood pressure Blood Pressure Disposition: did not require urgent referral MDM Narrative 1257: The patient was evaluated in room B11B. A complete history and physical exam was performed. 1317: I performed a FAST exam on the patient which was negative. See procedure note. 1602: Vital signs stable. Patient still having significant amounts of pain. Analgesia ordered in the emergency department. Labs within normal limits CT of the head shows no hemorrhage or calvarial fracture. CT of the C-spine shows non-distracted fracture of the right occipital condyle. Moderate acute compression fracture of C7. No retropulsed fragments. C7 fracture involves the posterior elements including the right pedicle, lamina, and facet joint. Is also fracture of the right inferior facet of C6 and right transverse process of C6. Likely a small avulsion fracture from the posterior/inferior aspect of the lateral mass of C1. There is intramuscular hemorrhage identified within the [facility] lateral paraspinous musculature. I reviewed the patient's case and CT reports verbatim with Dr. Shore, [facility] [place]. He states that there is no emergent surgical intervention needed at this time and that the patient should be placed in a [place] J collar. Dr. Arndt said that the patient could follow-up with him in the clinic, however both the patient and I feel that the patient should be admitted for pain management as well as possible rehab. Dr. Arndt was comfortable with the patient be admitted to the hospitalist service with him on consult for the cervical structures. 1631: CT of the abdomen showed no evidence of solid injury in the abdomen or pelvis. X-rays of shoulder, femur, pelvis, and chest showed no traumatic injuries. X-ray of the elbow showed a minimally distracted fracture through the olecranon process of the ulna. Given the laceration over the elbow, this patient appears to have an open fracture and it appears to be Gustillo classification type I open fracture. I reviewed the patient's case with Dr. Ho, [facility] [place]. He states that he wants to come into the ED to see the fracture and does not want me to close it right now. 1718: Dr. Ho evaluated the patient at bedside. He wants me to put the patient in a posterior splint with betadine. Patient has a severe history to penicillin and therefore Ancef will not be given and he said clindamycin was ordered. Dr. Ho states that he is okay with giving the patient clindamycin. He states that he wants a CT scan of the patient's elbow. He notes that he will take the patient to the OR for a washout. 1720: I reviewed the patient's case with Dr. Rivera, [facility] Hospitalist. He states he does not think that the patient should be admitted to his service as they have traumatic injuries. I did explain to him that both Dr. Shore ortho spine and Dr. Ho orthopedics agreed to be on consult and stated they were comfortable managing their respective orthopedic injuries at this facility. Dr. Rivera stated he will discuss with his hospitalist colleague and get back to us regarding admission. 1820: Dr. Mcclure met in the hospitalist came down to evaluate the patient. He stated he spoke with Dr. Shore and Dr. Ho and after discussing with them he agreed to admit the patient with both orthopedist on consult. 1850: Dr. Ho viewed the CT scan and took the patient to the OR. Impression & Plan Compression fracture of C7 vertebra, C6 cervical fracture, C1 cervical fracture, Olecranon fracture, Fall Critical Care Time Critical Care Time: Yes Total Critical Care Time: 35 I have personally spent 35 minutes of critical care time in the direct management of this patient. This includes bedside care, interpretation of diagnostic studies, and testing, discussion with consultants, patient, and family members, and other required patient management activities. This 35 minutes is in excess of all separately billable procedures. Discharge Plan Visit Data Chief Complaint: Fall ED Provider: Oni Duggan Discharge Problem: Compression fracture of C7 vertebra, C6 cervical fracture, C1 cervical fracture, Olecranon fracture, Fall Patient Disposition: Admitted As Inpatient Discharge Instructions Interventions: ED Discharge Assessment Last Done: 04/03/19 18:16 Discharge Problem: Compression fracture of C7 vertebra Qualifiers: Encounter type: initial encounter Qualified Code(s): S12.690A - Other displaced fracture of seventh cervical vertebra, initial encounter for closed fracture C6 cervical fracture Qualifiers: Encounter type: initial encounter Fracture type: closed Fracture morphology: unspecified fracture morphology Fracture alignment: nondisplaced Qualified Code(s): S12.501A - Unspecified nondisplaced fracture of sixth cervical vertebra, initial encounter for closed fracture C1 cervical fracture Qualifiers: Encounter type: initial encounter Fracture type: closed Fracture morphology: unspecified fracture morphology Fracture alignment: nondisplaced Qualified Code(s): S12.001A - Unspecified nondisplaced fracture of first cervical vertebra, initial encounter for closed fracture Olecranon fracture Qualifiers: Encounter type: initial encounter Fracture type: open Open fracture type: open type I or II Laterality: left Qualified Code(s): S52.022B - Displaced fracture of olecranon process without intraarticular extension of left ulna, initial encounter for open fracture type I or II Fall Qualifiers: Encounter type: initial encounter Qualified Code(s): W19.XXXA - Unspecified fall, initial encounter The scribe's documentation has been prepared under my direction and personally reviewed by me in its entirety. I confirm that the note above accurately reflects all work, treatment, procedures, and medical decision making performed by me.
[2019-04-03] MEDS ORDERED: GLYCOPYRROLATE 0.2 MG/ML VIAL ONE (20:36)
[2019-04-03] MEDS ORDERED: CEFAZOLIN 2000MG 2,000 MG/15 ML SYR IV STA (20:37)
--- NOTE | 2019-04-03 20:49 | Progress Note ---
DATE: 04/03/2019 CHIEF COMPLAINT: Left elbow pain. HISTORY OF PRESENT ILLNESS: The patient is a 73-year-old female who is visiting the area from [place]. She fell down the steps and sustained a cervical spine fracture which has been addressed by Dr. Shore. His recommendations are to keep her into a cervical collar and do fiberoptic intubation. The patient is to be admitted to medicine. She also complains of pain in her left hip area. She has had both of her hips replaced. There is pain and bleeding from her left elbow. She did not ambulate after she fell due to leg pain. She fell because she mistook the stairs for the bathroom. PAST MEDICAL HISTORY: Significant for high blood pressure. She was recently diagnosed with lupus. She has elevated cholesterol. PAST SURGICAL HISTORY: She has had a breast biopsy done as well as bilateral hip replacements. ALLERGIES: PENICILLIN WHICH CAUSED HIVES MANY YEARS AGO. MEDICATIONS: Valsartan, rosuvastatin, hydroxychloroquine, famotidine, vitamin D, calcium carbonate, aspirin, Tylenol. REVIEW OF SYSTEMS: She denies MRSA, bleeding or blood clotting problems, she is not on a blood thinner. She has not had a heart attack, lung, liver, or kidney disease. She denies having cancer. PHYSICAL EXAMINATION: EXTREMITIES: Her left lower extremity, distal neurovascularly intact. She can bend her knee about 60 degrees, but cannot do a leg lift. There is some tenderness over the left hip area. A minor bruise anteriorly. Negative log roll. The ankle, leg, and foot are nontender. Examination of the left elbow reveals full forearm rotation and full elbow flexion and extension. She has 5-/5 elbow extension strength limited by pain. Normal elbow flexion strength. Median, radial and ulnar motor and sensory functions are intact. Radial pulses 1+. There is a 1-cm laceration over the medial side of the tip of the olecranon. The olecranon is tender and bruised and swollen. The remainder of the arm, hand, wrist, forearm, and arm area are nontender. Palpation reveals subcutaneous fracture fragments. IMAGING DATA: CT scan of the pelvis as well as AP pelvis, AP lateral view of the left femur show no evidence of acute fracture involving the pelvis, left hip, or femur. There are bilateral well-fixed and uncomplicated hip replacements in place. Left elbow x-ray demonstrates a fracture at the tip of the olecranon without dislocation. A CT scan done shows fracture of the medial wall of the olecranon as well as the tip. These are fairly minor, comminuted, and nondisplaced. There is air within the elbow joint. No other fractures noted. The report is pending. There is no dislocation. IMPRESSION: 1. Lupus. 2. Cervical spine fracture. 3. Left hip pain. 4. Grade 1 open fracture of the left olecranon. PLAN: My findings were discussed with the patient. I recommend irrigation, debridement, possible fixation of the left olecranon fracture. The fracture is comminuted and structurally may not require any fixation. Could consider screws or a tension band. It is possible that this could be treated in a splint as well. If this were a closed injury, I think that it likely would be treated nonoperatively in a splint. I do recommend irrigation and debridement as this is an open fracture. It has been 5+ hours since the injury. She is scheduled to receive tetanus and has gotten a dose of clindamycin secondary to her penicillin allergy. She would then be admitted to the hospital for intravenous antibiotics postoperatively. One of the hospitalists will see the patient and evaluate. Additionally, I have spoken to Dr. Shore and he recommends that the patient stay in her cervical collar and have fiberoptic intubation.
[2019-04-03] MEDS ORDERED: LARYING-O-JET KIT (LTA) ONE (21:01)
[2019-04-03] MEDS ORDERED: LIDOCAINE HCL 2% 2 ML VIAL/AMP(20MG/ML) INFIL ONE (21:01)
[2019-04-03] MEDS ORDERED: CEFAZOLIN 250 MG/ML 1 GM VIAL ONE (21:02)
[2019-04-03] MEDS ORDERED: LIDOCAINE HCL 1% 20 ML VIAL ONE (21:16)
--- NOTE | 2019-04-03 21:32 | Fluoroscopy Report ---
INTRAOPERATIVE RADIOGRAPHS CLINICAL HISTORY: Open reduction and internal fixation with clean out of the left elbow. Fluoroscopy time: 8 seconds. FINDINGS: 2 spot fluoroscopic views of the left elbow are correlated with left elbow radiographs and CT performed the same day. Again seen is a fracture at the tip of the olecranon process with overlyin g soft tissue injury/wound. The elbow joint remains in near-anatomic alignment. IMPRESSION: Intraoperative radiographs of the left elbow as above. See operative report for detailed findings. Electronically signed by: Anish Salinas M.D. 04/03/2019 9:30 PM
--- NOTE | 2019-04-03 21:49 | Operative Report ---
Post Operative Report Pre & Post Diagnosis Operation Date: 04/03/19 18:30 Pre-Op Diagnosis: comminuted fracture of the olecranon process Post-Op Diagnosis: comminuted fracture of the olecranon process I identified the patient and participated in the time-out.: Yes Procedure Operation Date: 04/03/19 18:30 Actual Procedures p Irrigation and Debridement, Fragment Excision, Tricep Tendon Repair(Left) - Ronaldo Ho MD Surgeon Ronaldo Ho MD Charging Operator Mary Jo Berger PA-C Estimated Blood Loss 3 Findings Consistent with Post-Op Diagnosis Specimens none Complications none Disposition Accompanied Patient To Recovery: Yes Disposition: PCU Description of Procedure I was present during the entire case assisting with wound closure and dressing application. Please see Dr. Ho procedure note for specifics of the case. I attest to the content of the Intraoperative Record and any orders documented therein. Any exceptions are noted below.
--- NOTE | 2019-04-03 21:59 | Operative Report ---
Post Operative Report Pre & Post Diagnosis Operation Date: 04/03/19 18:30 Pre-Op Diagnosis: comminuted fracture of the olecranon process Post-Op Diagnosis: comminuted fracture of the olecranon process I identified the patient and participated in the time-out.: Yes Procedure Operation Date: 04/03/19 18:30 Actual Procedures p Irrigation and Debridement, Fragment Excision, Tricep Tendon Repair(Left) - Ronaldo Ho MD Surgeon Ronaldo Ho MD Activity Specialist ELIDIA Berger Estimated Blood Loss 3 Findings Consistent with Post-Op Diagnosis Specimens None Drains None Anesthesia Type General Complications none Disposition Accompanied Patient To Recovery: No Disposition: Recovery Room Indications Patient 73 years old. She has a past history of hypertension and lupus. She accidentally fell down the steps and sustained a cervical spine fracture as well as a grade 1 open comminuted left olecranon fracture. Dr. Arndt is addressing her cervical spine fracture. He is recommended that she remain in the cervical collar. I recommended irrigation debridement repair possible excision of the comminuted olecranon fracture. She received tetanus and antibiotics in the ER. She also has pain of her left leg but is had plain films of the pelvis hip and femur as well as a CT scan showing no evidence of fracture. She has bilateral total hips Description of Procedure Informed consent obtained. Patient identified. She identified the operative site as the left elbow. I marked it with my initials and a preop surgical timeout was performed. Preop dose of IV antibiotics was given. She was taken to the operating room positioned supine on the operating room table. She was carefully logrolled with her neck held in neutral alignment by the anesthesiologist with a cervical collar on. After logrolling her she was carefully transposed to the OR table using a roller. She then underwent a fiberoptic intubation. Prior to anesthesia she could flex and extend her toes and ankles move both arms and open and close her hand. The examination showed full movement of the elbow. A 1 to 1-1/2 cm laceration over the posterior medial aspect of the elbow which was oozing a slight bit of blood. No crepitation was noted in the elbow joint and there was some bruising and mild swelling. Her preoperative lab work was noted. She had mild renal renal insufficiency. SCDs for DVT prophylaxis. Limb exsanguinated with the Esmarch. Tourniquet inflated 250 mmHg. A small incision was made including the laceration. This was eventually lengthened to about a 10 to 12 cm incision in order to proceed with the operation. The hemorrhagic olecranon bursa was thoroughly excised. The laceration communicated directly with the fracture. The central portion of 1 of the small fragments was open but otherwise the fascia was closed. Approximately 50% of the triceps was attached to the fragments which were generally intact and stable but my concern was that with continued pull of the triceps these fragments could eventually displace. I went ahead and excised that the fragments. There were 2 small fragments that were 3 to 5 mm in size perhaps a millimeter to big. There were 2 larger fragments which were about 5 x 7 mm and then the large medial fragment which was only about 3 or 4 mm thick and only the width of the cortex beyond that. This was on the medial side. Care was taken to protect the ulnar nerve. This is the route that the air got into the joint as this communicated directly with the joint. After excising these 5 fragments. The largest of which was 1- 1/2 cm long 12 mm wide and 2 to 4 mm thick. These did not affect structural integrity of the olecranon but did have part of the triceps and its expansion attached to it. I then went ahead and did Betadine lavage 500 cc followed by 3 L of saline containing antibiotics. The joint was irrigated as well. A spec or 2 of potential debris was removed. Then made a Krakw weave through the distal 3 cm of the triceps taking care to avoid and protect the ulnar nerve. Two 2 mm drill holes were then made into the fracture bed several millimeters posterior to the joint and then brought out in a divergent posterior and lateral fashion. The Hewson suture passer was then placed retrograde and the stitches were passed in antegrade fashion. They could easily be advanced into the wound with complete reapproximation of the medial approximate half of the triceps. There was still about 5 to 7 mm of proximal olecranon that remained intact that the did appear to have triceps attached to it. The elbow was placed at about 30 degrees of flexion and the suture was tied. I then reinforced this with interrupted #1 Vicryl's along the posterior and medial aspect. A layered closure with 2 oh and agueda was then done for the surgical incision and the traumatic laceration was closed loosely with two 4-0 nylon sutures. 1% lidocaine without epinephrine was injected around the incision except for the area of the ulnar nerve a total of 6 cc. This was followed by Xeroform 4 x 4's ABD posterior splint from the wrist to the shoulder with the elbow and 80 degrees flexion. Tourniquet was let down while the wound was being closed and hemostasis was achieved with pressure. She was then awakened from anesthesia without difficulty and taken to the recovery room in stable condition. There were no specimens or complications. Counts were correct blood loss was 3 cc. At the conclusion the operation spoke patient's family informed of my findings and gave postoperative instructions. Plan for her elbow will be immobilization in a splint. She will be able to move her hand. She will eventually need rehab. There will be limitations of active extension and degree of flexion. She is from [place] and perhaps will be heading back there for her rehab. She will have mechanical devices for DVT prophylaxis until we determine what is needed for her spine. Spine precautions have been ordered. She will received a 24 hours postop antibiotics. I attest to the content of the Intraoperative Record and any orders documented therein. Any exceptions are noted below.
[2019-04-03] MEDS ORDERED: ePHEDrine sulfate 50 MG/ML AMP IV PRN (22:08)
[2019-04-03] MEDS ORDERED: ATROPINE SULFATE 0.1 MG/ML 10ML SYR IV PRN (22:08)
[2019-04-03] MEDS ORDERED: fentaNYL citrate 100 MCG/2 ML VIAL IV PRN (22:08)
[2019-04-03] MEDS ORDERED: BENZOCAIN/TETRACA/BUTAM SPRAY 200 APPLN/20 GM SPRY EXT ONE (22:17)
--- NOTE | 2019-04-03 22:28 | Anesthesiology Progress Note ---
Date of Service April 03, 2019 Anesthesia Post Procedure Vital Signs Vital Signs: Temp Pulse Pulse Resp BP BP Pulse Ox 04/03/19 22:20 84 14 109/74 100 04/03/19 22:10 86 16 120/77 100 04/03/19 22:00 86 18 119/86 100 04/03/19 21:53 36 C L 91 H 16 116/83 100 04/03/19 18:10 97 04/03/19 18:00 96 04/03/19 17:50 89 L 04/03/19 17:45 97 04/03/19 17:20 83 20 91 04/03/19 17:10 85 17 95 04/03/19 17:01 79 98 04/03/19 17:00 79 112/59 L 95 04/03/19 16:50 80 94 04/03/19 16:40 94 H 15 98 04/03/19 16:31 78 15 96 04/03/19 16:30 74 20 88/52 L 97 04/03/19 16:20 82 16 99 04/03/19 16:10 81 19 100 04/03/19 16:02 91 H 17 97/64 L 98 04/03/19 16:00 85 19 100 04/03/19 15:59 100 04/03/19 14:40 100 04/03/19 14:35 100 04/03/19 14:34 145/67 H 100 04/03/19 13:50 76 17 100 04/03/19 13:40 76 19 99 04/03/19 13:30 78 18 100 04/03/19 13:20 73 23 04/03/19 13:10 79 16 97 04/03/19 13:03 78 29 H 99 04/03/19 12:36 77 19 149/75 H 99 04/03/19 12:17 36.5 C 79 18 149/75 H 99 Transfer of Care Handoff Completed per policy Notes Mental Status: alert / awake / arousable and participated in evaluation Patient Amnestic to Procedure: Yes Nausea / Vomiting: adequately controlled Pain: adequately controlled Airway Patency, RR, SpO2: stable & adequate BP & HR: stable & adequate Hydration State: stable & adequate Anesthetic Complications: no major complications apparent Notes: Pt had I & D left elbow wound under GA after awake fiberoptic intubation. C Spine immobilizer was kept in place and C spine maintained in neutral position during case and on arrival in PACU. Pt AAO x 3 in PACU. Denies numbness, weakness, demonstrates firm grasp bilaterally and moves all extremities appropriately on command. For admission to telemetry bed.
[2019-04-03] MEDS ORDERED: ACETAMINOPHEN 325 MG TAB PO PRN (23:08)
[2019-04-03] MEDS ORDERED: MoRPHine SULFATE 4 MG/ML 1 ML CARP\\VIAL IV PRN (23:08)
[2019-04-03] MEDS ORDERED: METOCLOPRAMIDE HCL INJ 5 MG/ML 2 ML VIAL IV PRN (23:08)
[2019-04-03] MEDS ORDERED: HYDROXYCHLOROQUINE SULFATE 200 MG TAB PO SCH (23:08)
[2019-04-03] MEDS ORDERED: BISACODYL 10 MG SUPP PR PRN (23:08)
[2019-04-03] MEDS ORDERED: NALOXONE HCL 0.4 MG/1 ML VIAL/CARP IV PRN (23:08)
[2019-04-03] MEDS ORDERED: MAGNESIUM HYDROXIDE SUSP 30 ML UDC PO PRN (23:08)
[2019-04-03] MEDS ORDERED: OXYCODONE HCL IR 5 MG TAB (IMMEDIATE RELEASE) PO PRN (23:08)
[2019-04-03] MEDS ORDERED: ONDANSETRON INJ 2 MG/ML 2 ML VIAL IV PRN (23:08)
[2019-04-03] MEDS: FAMOTIDINE 20 MG TAB PO SCH (23:45)
[2019-04-04] MEDS: HYDROXYCHLOROQUINE SULFATE 200 MG TAB PO SCH ×2 (00:17→21:02)
[2019-04-04] MEDS: CEFAZOLIN 1000MG 1,000 MG/7.5 ML SYR IV SCH ×2 (04:25→12:28)
[2019-04-04 08:10] LABS: Hematocrit (blood only) 28.9 % (37-47); Hemoglobin 9.8 g/dL (12.0-16.0); Mean Corpuscular Hemoglobin 30.4 pg (25-34); Mean Corpuscular Hgb Conc 33.9 g/dL (32-36); Mean Corpuscular Volume 89.8 fL (80-100); Mean Platelet Volume 12.3 fL (7.4-10.4); Platelet Count 116 K/uL (130-400); RDW Coefficient of Variation 13.2 % (11.5-14.5); RDW Standard Deviation 43.2 fL (36.4-46.3); Red Blood Count 3.22 M/uL (4.2-5.4); White Blood Count 9.32 K/uL (4.8-10.8)
--- NOTE | 2019-04-04 08:11 | Anesthesiology Progress Note ---
Date of Service April 04, 2019 Anesthesia Post Procedure Vital Signs Vital Signs: Temp Pulse Pulse Resp BP BP BP 04/04/19 07:39 36.8 C 86 14 134/68 04/04/19 02:51 36.9 C 79 17 121/63 04/04/19 02:00 36.8 C 84 18 137/92 04/04/19 01:06 36.9 C 93 H 16 137/72 04/03/19 23:49 37.0 C 84 18 132/78 04/03/19 23:10 37.1 C 88 20 138/71 04/03/19 22:40 37.3 C 80 20 141/71 H 04/03/19 22:30 36.6 C 78 14 129/75 04/03/19 22:20 84 14 109/74 04/03/19 22:10 86 16 120/77 04/03/19 22:00 86 18 119/86 04/03/19 21:53 36 C L 91 H 16 116/83 04/03/19 18:10 04/03/19 18:00 04/03/19 17:50 04/03/19 17:45 04/03/19 17:20 83 20 04/03/19 17:10 85 17 04/03/19 17:01 79 04/03/19 17:00 79 112/59 L 04/03/19 16:50 80 04/03/19 16:40 94 H 15 04/03/19 16:31 78 15 04/03/19 16:30 74 20 88/52 L 04/03/19 16:20 82 16 04/03/19 16:10 81 19 04/03/19 16:02 91 H 17 97/64 L 04/03/19 16:00 85 19 04/03/19 15:59 04/03/19 14:40 04/03/19 14:35 04/03/19 14:34 145/67 H 04/03/19 13:50 76 17 04/03/19 13:40 76 19 04/03/19 13:30 78 18 04/03/19 13:20 73 23 04/03/19 13:10 79 16 04/03/19 13:03 78 29 H 04/03/19 12:36 77 19 149/75 H 04/03/19 12:17 36.5 C 79 18 149/75 H Pulse Ox 04/04/19 07:39 98 04/04/19 02:51 96 04/04/19 02:00 100 04/04/19 01:06 100 04/03/19 23:49 95 04/03/19 23:10 97 04/03/19 22:40 100 04/03/19 22:30 100 04/03/19 22:20 100 04/03/19 22:10 100 04/03/19 22:00 100 04/03/19 21:53 100 04/03/19 18:10 97 04/03/19 18:00 96 04/03/19 17:50 89 L 04/03/19 17:45 97 04/03/19 17:20 91 04/03/19 17:10 95 04/03/19 17:01 98 04/03/19 17:00 95 04/03/19 16:50 94 04/03/19 16:40 98 04/03/19 16:31 96 04/03/19 16:30 97 04/03/19 16:20 99 04/03/19 16:10 100 04/03/19 16:02 98 04/03/19 16:00 100 04/03/19 15:59 100 04/03/19 14:40 100 04/03/19 14:35 100 04/03/19 14:34 100 04/03/19 13:50 100 04/03/19 13:40 99 04/03/19 13:30 100 04/03/19 13:20 04/03/19 13:10 97 04/03/19 13:03 99 04/03/19 12:36 99 04/03/19 12:17 99 Notes Mental Status: alert / awake / arousable and participated in evaluation Patient Amnestic to Procedure: Yes Nausea / Vomiting: adequately controlled Pain: adequately controlled Airway Patency, RR, SpO2: stable & adequate BP & HR: stable & adequate Hydration State: stable & adequate Anesthetic Complications: no major complications apparent and Pt Satisfied with anesthetic care
[2019-04-04 08:17] LABS: BUN Creatinine Ratio 19.7 (10-20); Calcium 8.8 mg/dl (8.5-10.1); Creatinine Clr Calc Pharmacy 53.3 ml/min; Est GFR (African American) 54.3; Est GFR (Non-African American) 46.8; Magnesium 1.9 mg/dl (1.8-2.4); Phosphorus 4.3 mg/dl (2.5-4.9); Potassium 4.2 mmol/L (3.5-5.1)
[2019-04-04] MEDS: FAMOTIDINE 20 MG TAB PO SCH ×2 (08:30→21:03)
[2019-04-04] MEDS: MULTIVITAMIN TAB PO SCH (08:30)
[2019-04-04] MEDS: ROSUVASTATIN CALCIUM 20 MG TAB PO SCH (08:30)
[2019-04-04] MEDS: DOCUSATE SODIUM 100 MG CAP PO SCH ×2 (08:30→21:01)
[2019-04-04] MEDS ORDERED: ACETAMINOPHEN 325 MG TAB PO SCH (09:00)
--- NOTE | 2019-04-04 10:21 | Magnetic Resonance Report ---
MR cervical spine wo con CLINICAL HISTORY: 73 years-old Female presenting with fracture. TECHNIQUE: Multisequence, multiplanar MR imaging of the cervical spine was performed without the use of intravenous contrast. IV contrast: None. COMPARISON: 04/03/2019. FINDINGS: Localizer images: Unremarkable. Straightening of normal cervical lordosis likely due to multilevel degenerative changes. Vertebral charisse dies demonstrate bony edema paralleling the superior endplates at C7-T3. Mild compression deformity a t C7. Extensive edema within the interspinous ligament at the level of C2-C5 and in the paraspinal mu sculature along the posterior elements more so on the left extensively throughout the cervical spine and extending into the superior portion of the thoracic spine. The previously mentioned occipital condyle fractures are not well appreciated given the absence of charisse ny edema. There is no disruption of the tectal plate. No fluid associated with the alar ligaments are transverse ligament. Minimal edema is associated with the pedicle and facets of C7 on the right at the site of the fractur es. Minimal fracture of the inferior facet of C6 on the right is better appreciated on CT. Trace flui d within the C6-7 and C7-T1 facet joints on the right. No epidural collection. Diffuse intervertebral disc desiccation with multilevel disc osteophyte compl exes primarily at C3-4 through C5-6 resulting in moderate to severe spinal canal stenosis greatest at C5-6. No flattening of the spinal cord. No abnormal spinal cord signal to suggest edema or myelomala gianna. Uncovertebral hypertrophy results in multilevel neural foraminal narrowing again most severe at C3-4 through C5-6. IMPRESSION: 1. Ligamentous edema in the interspinous region and along the left paraspinal musculature consistent with acute injury. 2. Multilevel compression fractures suggesting a hyperflexion injury pattern at C7-T3 most severely effecting C7. 3. Involvement of the right pedicle and facets of C7 and to a minimal extent the inferior facet of C 6 on the right best appreciated on CT. 4. No evidence of an epidural hematoma. 5. No convincing evidence of ligamentous injury at C1 at the reported occipital condylar fracture. Electronically signed by: Ronaldo Enrique M.D. 04/04/2019 10:19 AM
--- NOTE | 2019-04-04 11:10 | Orthopedic Progress Note ---
Date of Service April 04, 2019 Assessment & Plan (1) Lupus: Continue Plaquenil Present on Admission?: Yes (2) Open olecranon fracture: She had a grade 1 open olecranon fracture which was treated with fragments excision and repair of the partial defect less than 50% of the triceps. She will be continued in the splint. Postop IV antibiotics. Depending on whether she goes back to [place] or not will determine treatment. If she stays here we will leave her in the splint for the time being and eventually work her out into a brace and start some PT with restrictions on the amount of flexion and active extension. Present on Admission?: Yes (3) Left hip pain: X-rays and CT were negative. Seems to be improving we will continue to monitor. As far as I am concerned she can weight-bear as tolerated on both lower extremities. PT and OT for ambulatory status and transfers can be initiated on my part. We would just have to make sure it was okay with Dr. Arndt in regards to her spine. Present on Admission?: Yes (4) Fall (on) (from) other stairs and steps, initial encounter: Present on Admission?: Yes Subjective Resting comfortably in bed. No additional complaints are noted. Physical Exam Physical Exam: Left radial pulses 1+. Median radial and ulnar motor and sensory functions are intact. Splint intact. Cervical collar in place. She can do straight leg raise bilaterally right easier than left secondary to pain. The left knee can be flexed to almost 90 degrees. There is mild discomfort to palpation in the left hip area. She can sit with her leg slightly flexed and externally rotated. Her distal neurovascular function is intact. Results & Data Vital Signs (Past 12 Hours) Vital Signs Temp Pulse Resp BP Pulse Ox 04/04/19 10:08 89 21 117/60 98 04/04/19 07:39 36.8 C 86 14 134/68 98 04/04/19 02:51 36.9 C 79 17 121/63 96 04/04/19 02:00 36.8 C 84 18 137/92 100 04/04/19 01:06 36.9 C 93 H 16 137/72 100 04/03/19 23:49 37.0 C 84 18 132/78 95 04/03/19 23:10 37.1 C 88 20 138/71 97 Laboratory Results 1104/04/19 04/04/19 Range/Units 07:16 07:00 07:00 WBC 9.32 (4.8-10.8) K/uL RBC 3.22 L (4.2-5.4) M/uL Hgb 9.8 L (12.0-16.0) g/dL Hct 28.9 L (37-47) % MCV 89.8 (80-100) fL MCH 30.4 (25-34) pg MCHC 33.9 (32-36) g/dL RDW Std Deviation 43.2 (36.4-46.3) fL RDW Coeff of Oswaldo 13.2 (11.5-14.5) % Plt Count 116 L (130-400) K/uL MPV 12.3 H (7.4-10.4) fL Immature Gran % (Auto) % Neut % (Auto) % Lymph % (Auto) % [place] % (Auto) % Eos % (Auto) % Baso % (Auto) % Immature Gran # (Auto) (0.00-0.02) K/uL Neut # (Auto) (1.4-6.5) K/uL Lymph # (Auto) (1.2-3.4) K/uL [place] # (Auto) (0.11-0.59) K/uL Eos # (Auto) (0-0.5) K/uL Baso # (Auto) (0-0.2) K/uL PT (9.0-12.0) Seconds INR (0.9-1.1) APTT (21.0-31.0) Seconds PTT Ratio Sodium 140 (136-145) mmol/L Potassium 4.2 (3.5-5.1) mmol/L Chloride 109 H (98-107) mmol/L Carbon Dioxide 24 (21-32) mmol/L Anion Gap 7.0 (3-11) BUN 23 H (7-18) mg/dl Creatinine 1.15 (0.6-1.2) mg/dl Est Cr Clr Drug Dosing 53.3 ml/min Est GFR ( Amer) 54.3 Est GFR (Non-Af Amer) 46.8 BUN/Creatinine Ratio 19.7 (10-20) Glucose 111 H (70-99) mg/dl POC Glucose 111 H (70-99) Calcium 8.8 (8.5-10.1) mg/dl Phosphorus 4.3 (2.5-4.9) mg/dl Magnesium 1.9 (1.8-2.4) mg/dl Hepatitis C Ab Screen (Neg) 04/03/19 04/03/19 04/03/19 Range/Units 13:34 13:08 13:08 WBC (4.8-10.8) K/uL RBC (4.2-5.4) M/uL Hgb (12.0-16.0) g/dL Hct (37-47) % MCV (80-100) fL MCH (25-34) pg MCHC (32-36) g/dL RDW Std Deviation (36.4-46.3) fL RDW Coeff of Oswaldo (11.5-14.5) % Plt Count (130-400) K/uL MPV (7.4-10.4) fL Immature Gran % (Auto) % Neut % (Auto) % Lymph % (Auto) % [place] % (Auto) % Eos % (Auto) % Baso % (Auto) % Immature Gran # (Auto) (0.00-0.02) K/uL Neut # (Auto) (1.4-6.5) K/uL Lymph # (Auto) (1.2-3.4) K/uL [place] # (Auto) (0.11-0.59) K/uL Eos # (Auto) (0-0.5) K/uL Baso # (Auto) (0-0.2) K/uL PT 10.9 (9.0-12.0) Seconds INR 1.1 (0.9-1.1) APTT 23.0 (21.0-31.0) Seconds PTT Ratio 0.8 Sodium 141 (136-145) mmol/L Potassium 3.9 (3.5-5.1) mmol/L Chloride 108 H (98-107) mmol/L Carbon Dioxide 25 (21-32) mmol/L Anion Gap 8.0 (3-11) BUN 24 H (7-18) mg/dl Creatinine 1.23 H (0.6-1.2) mg/dl Est Cr Clr Drug Dosing 42.8 ml/min Est GFR ( Amer) 50.0 Est GFR (Non-Af Amer) 43.2 BUN/Creatinine Ratio 19.9 (10-20) Glucose 106 H (70-99) mg/dl POC Glucose 105 H (70-99) Calcium 9.5 (8.5-10.1) mg/dl Phosphorus (2.5-4.9) mg/dl Magnesium (1.8-2.4) mg/dl Hepatitis C Ab Screen (Neg) 04/03/19 04/03/19 Range/Units 13:08 04:44 WBC 10.79 (4.8-10.8) K/uL RBC 3.95 L (4.2-5.4) M/uL Hgb 11.9 L (12.0-16.0) g/dL Hct 35.2 L (37-47) % MCV 89.1 (80-100) fL MCH 30.1 (25-34) pg MCHC 33.8 (32-36) g/dL RDW Std Deviation 41.4 (36.4-46.3) fL RDW Coeff of Oswaldo 12.8 (11.5-14.5) % Plt Count 150 (130-400) K/uL MPV 12.6 H (7.4-10.4) fL Immature Gran % (Auto) 0.7 % Neut % (Auto) 85.4 % Lymph % (Auto) 7.4 % [place] % (Auto) 5.7 % Eos % (Auto) 0.7 % Baso % (Auto) 0.1 % Immature Gran # (Auto) 0.08 H (0.00-0.02) K/uL Neut # (Auto) 9.20 H (1.4-6.5) K/uL Lymph # (Auto) 0.80 L (1.2-3.4) K/uL [place] # (Auto) 0.62 H (0.11-0.59) K/uL Eos # (Auto) 0.08 (0-0.5) K/uL Baso # (Auto) 0.01 (0-0.2) K/uL PT (9.0-12.0) Seconds INR (0.9-1.1) APTT (21.0-31.0) Seconds PTT Ratio Sodium (136-145) mmol/L Potassium (3.5-5.1) mmol/L Chloride (98-107) mmol/L Carbon Dioxide (21-32) mmol/L Anion Gap (3-11) BUN (7-18) mg/dl Creatinine (0.6-1.2) mg/dl Est Cr Clr Drug Dosing ml/min Est GFR ( Amer) Est GFR (Non-Af Amer) BUN/Creatinine Ratio (10-20) Glucose (70-99) mg/dl POC Glucose (70-99) Calcium (8.5-10.1) mg/dl Phosphorus (2.5-4.9) mg/dl Magnesium (1.8-2.4) mg/dl Hepatitis C Ab Screen Neg (Neg)
--- NOTE | 2019-04-04 11:21 | History and Physical Report ---
DATE OF ADMISSION: 04/03/2019 CHIEF COMPLAINT: Neck pain, spinal consultation in regard to cervical spine injuries. HISTORY OF PRESENT ILLNESS: The patient is delightful. She is 73. She is from [place] of town. She was at her grandson's fernandez ceremony becoming an [employer], fell, tripped down some stairs and suffered acute injury to the cervical spine and to the left elbow. She is admitted to the hospital yesterday late afternoon. I was consulted from the ER. I also spoke with Dr. Ho and also spoke with Dr. Larry Mcclure in regard to her injury and appropriate admission. She is alert, oriented. ALLERGIES: PENICILLIN. MEDICATIONS: Listed. MEDICAL AND SURGICAL HISTORY: Includes lupus, arthritis, hypertension. SOCIAL HISTORY: She is alert, oriented, speaks Vincentian, safe at home. REVIEW OF SYSTEMS: Denies any fevers, sweats, chills. Ear, nose and throat negative. No chest pain, palpitations. On today's examination around 10:00 this morning, she has minimal cervical spine area. She denies any swallowing difficulties, any sore throat. OBJECTIVE: GENERAL: She is alert, oriented and pleasant. VITAL SIGNS: Blood pressure controlled. Vital signs stable. MUSCULOSKELETAL: Specifically in regard to her cervical spine trauma, she has intact neurological status, actually adequate range of motion of neck and as I palpate her spine, she did not have much tenderness. She has slight tenderness down around C7 and T1, which would be consistent with her injuries. She has 5/5 motor strength to the extremities. Good sensation, good reflex ability. IMAGES: Reviewed. I looked at CT scan. I ordered an MRI scan. I tried to put this all together. She does appear to have some mild ligamentous injury in the interspinous region. Consistent with her injury, she has small compression fracture at C7, multiple compression fractures indicating a hyperflexion injury which I agree to. They are very benign and they are quite mild. There is some involvement of the pedicle of C7, but no evidence of epidural hematoma. No cord compression. No gross ligamentous injury. SUMMARY: Putting this all together with the age of the patient, her benign physical examination, particularly no significant pain and no neurological deficit along with all her images, I am going to treat this nonoperatively. She will be ordered a cervical collar, which has been done. I will order a chest attachment to it, give a little more structural support. I would really stick to a nonoperative approach with this problem at least in the short run. If the problem dictate itself later on to have some instability patterns developing a spondylolisthesis, then it is needed decision to fix the injury, but right now at this moment, I would back away from surgical intervention. I think it is in her best interest. I will continue to follow. FRAN
--- NOTE | 2019-04-04 11:37 | Hospitalist Progress Note ---
Date of Service April 04, 2019 Assessment & Plan (1) Compression fracture of C7 vertebra: Presented with fall down 10 stairs resulting in multiple compression fractures C6-T3 with possible unstable C7 fracture seen on CT cervical spine Cervical spine x-rays with anterolisthesis grade 2 of C6 and C7 MRI cervical spine: 1. Ligamentous edema in the interspinous region and along the left paraspinal musculature consistent with acute injury. 2. Multilevel compression fractures suggesting a hyperflexion injury pattern at C7-T3 most severely effecting C7. 3. Involvement of the right pedicle and facets of C7 and to a minimal extent the inferior facet of C6 on the right best appreciated on CT. 4. No evidence of an epidural hematoma. 5. No convincing evidence of ligamentous injury at C1 at the reported occipital condylar fracture. Appreciate orthopedic spine surgery consultation Remains neurologically intact throughout Discussed the case with orthopedic spine surgery who recommends nonoperative treatment Continue cervical spine collar-adding chest attachment Okay for out of bed to chair today -DC Harrell catheter -Continue pain control with acetaminophen and tramadol as needed -Continue neurochecks Q4h -Okay to restart ASA as no surgery planned (2) C6 cervical fracture: As above (3) Elbow fracture, left: CT elbow on 04/03 shows comminuted fracture of the olecranon process as above with overlying soft tissue injury/open fracture. -Now status post fragments excision and repair of the partial defect less than 50% of the triceps. with Dr. Ho on 04/03 -Orthopedic surgery recommends that she will be continued in the splint, continue postop IV antibiotics. Depending on whether she goes back to [place] or not will determine treatment. If she stays here we will leave her in the splint for the time being and eventually work her out into a brace and start some PT with restrictions on the amount of flexion and active extension. -Continue pain control -Continue splint and shoulder sling for now (4) Lupus: No current flare. Pain under control with opiate pain meds for her neck/elbow. - Continue Plaquenil (5) Arthritis: - Restart calcium and vitamin D once able to sit up more and swallow more easily. - Pain control with opiates given present surgical needs (6) Hypertension: Blood pressure controlled -Okay to restart valsartan tomorrow (7) Left hip pain: Seen by orthopedics X-rays and CT were negative for fracture. She has a history of bilateral total hip arthroplasties -Orthopedics recommends weight-bear as tolerated (8) Fall: Mechanical fall down the stairs -PT/OT evaluations pending (9) DVT prophylaxis: SCDs added Disposition-stable for transfer off telemetry to medical/surgical floor PT/OT evaluations pending-May need rehab placement -Plan for discharge likely tomorrow if pain controlled and okay with orthopedic surgery Subjective Patient reports some pain in the neck and upper back. She denies chest pain shortness of breath, denies abdominal pain or nausea. She is feeling hungry. No other pains other than left elbow and some pain with left hip flexion. Denies numbness or tingling, denies weakness. Telemetry with normal sinus rhythm with rates in the 60s to 80s Review of Systems Review of Systems: All systems reviewed & are unremarkable except as noted in HPI & below Physical Exam Constitutional: WD/WN, vitals as above Eyes: PERRL, conjunctivae normal, anicteric sclerae ENMT: external ear and nose normal, oropharynx normal Neck: trachea midline, no thyromegaly + abnormal visual inspection ([place] J collar in place) Respiratory: normal respiratory effort, lungs clear to auscultation Cardiovascular: RRR, no murmur, no edema Gastrointestinal (Abdomen): normal bowel sounds, soft, nontender, no hepatosplenomegaly Musculoskeletal: Extremities: strength 5/5 throughout (Throughout upper and lower extremities except elbow not tested on the left); + extremities abnormal to inspection (Left upper extremity in sling with dressing in place over left elbow), no cyanosis and no clubbing Skin: no rashes, warm and dry Neurologic: moves all extremities and awake; no focal motor deficits Psychiatric: A+Ox3, euthymic affect Genitourinary: Harrell catheter in place draining clear yellow urine Results & Data Vital Signs (Past 12 Hours) Vital Signs Temp Pulse Resp BP Pulse Ox 04/04/19 11:06 36.8 C 82 21 116/60 99 04/04/19 10:08 89 21 117/60 98 04/04/19 07:39 36.8 C 86 14 134/68 98 04/04/19 02:51 36.9 C 79 17 121/63 96 04/04/19 02:00 36.8 C 84 18 137/92 100 04/04/19 01:06 36.9 C 93 H 16 137/72 100 04/03/19 23:49 37.0 C 84 18 132/78 95 Laboratory Results 04/04/19 04/04/19 04/04/19 Range/Units 07:16 07:00 07:00 WBC 9.32 (4.8-10.8) K/uL RBC 3.22 L (4.2-5.4) M/uL Hgb 9.8 L (12.0-16.0) g/dL Hct 28.9 L (37-47) % MCV 89.8 (80-100) fL MCH 30.4 (25-34) pg MCHC 33.9 (32-36) g/dL RDW Std Deviation 43.2 (36.4-46.3) fL RDW Coeff of Oswaldo 13.2 (11.5-14.5) % Plt Count 116 L (130-400) K/uL MPV 12.3 H (7.4-10.4) fL Sodium 140 (136-145) mmol/L Potassium 4.2 (3.5-5.1) mmol/L Chloride 109 H (98-107) mmol/L Carbon Dioxide 24 (21-32) mmol/L Anion Gap 7.0 (3-11) BUN 23 H (7-18) mg/dl Creatinine 1.15 (0.6-1.2) mg/dl Est Cr Clr Drug Dosing 53.3 ml/min Est GFR ( Amer) 54.3 Est GFR (Non-Af Amer) 46.8 BUN/Creatinine Ratio 19.7 (10-20) Glucose 111 H (70-99) mg/dl POC Glucose 111 H (70-99) Calcium 8.8 (8.5-10.1) mg/dl Phosphorus 4.3 (2.5-4.9) mg/dl Magnesium 1.9 (1.8-2.4) mg/dl Hepatitis C Ab Screen (Neg) 04/03/19 Range/Units 04:44 WBC (4.8-10.8) K/uL RBC (4.2-5.4) M/uL Hgb (12.0-16.0) g/dL Hct (37-47) % MCV (80-100) fL MCH (25-34) pg MCHC (32-36) g/dL RDW Std Deviation (36.4-46.3) fL RDW Coeff of Oswaldo (11.5-14.5) % Plt Count (130-400) K/uL MPV (7.4-10.4) fL Sodium (136-145) mmol/L Potassium (3.5-5.1) mmol/L Chloride (98-107) mmol/L Carbon Dioxide (21-32) mmol/L Anion Gap (3-11) BUN (7-18) mg/dl Creatinine (0.6-1.2) mg/dl Est Cr Clr Drug Dosing ml/min Est GFR ( Amer) Est GFR (Non-Af Amer) BUN/Creatinine Ratio (10-20) Glucose (70-99) mg/dl POC Glucose (70-99) Calcium (8.5-10.1) mg/dl Phosphorus (2.5-4.9) mg/dl Magnesium (1.8-2.4) mg/dl Hepatitis C Ab Screen Neg (Neg) PG Care Time/CCT Total # of Minutes Spent Total Time Spent with Patient: Total time spent is greater than 50% in coordination of care (as documented) at patient's floor/unit and/or counseling patient: (1) Compression fracture of C7 vertebra Encounter type: initial encounter Qualified Code(s): S12.690A - Other displaced fracture of seventh cervical vertebra, initial encounter for closed fracture (2) Fall Encounter type: initial encounter Qualified Code(s): W19.XXXA - Unspecified fall, initial encounter
[2019-04-04] MEDS: TRAMADOL HCL 50 MG TABLET PO PRN ×3 (12:28→23:15)
[2019-04-04] MEDS: ACETAMINOPHEN 500 MG TAB PO SCH ×2 (13:00→21:03)
--- NOTE | 2019-04-04 14:17 | XRay Report ---
XR cervical spine 2 or 3V CLINICAL HISTORY: 73 years-old Female presenting with fracture. TECHNIQUE: Lateral, frontal, and open mouth odontoid views of the cervical spine were obtained. COMPARISON: CT from 04/03/2019. FINDINGS: Mild straightening of normal cervical lordosis likely due to multilevel degenerative changes. There i s 8 mm of grade 2 anterolisthesis of C6 on C7, new from prior. Mild compression deformity of C7 as on prior exam. The underlying fractures of the pedicle and facets of the C7 vertebral body and right in ferior facet of the C6 vertebral body are not appreciated well by radiograph. There is suspected edwards slation at the right C6-7 facet joint given the anterolisthesis. Additional cervical fractures are al so not identified by radiograph. Normal predental interval. Disc osteophyte complexes from C3-4 throu gh C5-6. Lateral masses of C1 articulate normally with C2. The underlying occipital condylar fracture on the right is not well appreciated. No prevertebral soft tissue swelling. IMPRESSION: 1. Grade 2 anterolisthesis of C6 on C7 new from prior CT and concerning for acute subluxation relate d to underlying C7 and C6 fractures with instability at the right C6-7 facet joint. Orthopedic/neuros urgical consultation with possible external or surgical fixation to be considered. 2. Underlying multifocal cervical fractures are best appreciated on recent CT. 3. Multilevel degenerative changes in the mid cervical spine. The report will be called/faxed according to standard departmental protocol. Electronically signed by: Ronaldo Enrique M.D. 04/04/2019 2:16 PM
[2019-04-04 15:37] VITALS: O2SAT 95
[2019-04-04] MEDS ORDERED: SENNA 8.6 MG TAB PO SCH (21:00)
[2019-04-05] MEDS: ACETAMINOPHEN 500 MG TAB PO SCH (05:12)
[2019-04-05 05:47] LABS: Basophils # (auto) 0.02 K/uL (0-0.2); Basophils % (auto) 0.2 %; Eosinophils # (auto) 0.08 K/uL (0-0.5); Hematocrit (blood only) 27.5 % (37-47); Hemoglobin 9.2 g/dL (12.0-16.0); Immature Granulocytes # (auto) 0.01 K/uL (0.00-0.02); Immature Granulocytes % (auto) 0.1 %; Lymphocytes # (auto) 1.42 K/uL (1.2-3.4); Lymphocytes % (auto) 16.9 %; Mean Corpuscular Hemoglobin 30.3 pg (25-34); Mean Corpuscular Hgb Conc 33.5 g/dL (32-36); Mean Corpuscular Volume 90.5 fL (80-100); Mean Platelet Volume 11.7 fL (7.4-10.4); Monocytes # (auto) 0.93 K/uL (0.11-0.59); Monocytes % (auto) 11.1 %; Neutrophils # (auto) 5.92 K/uL (1.4-6.5); Neutrophils % (auto) 70.7 %; Platelet Count 123 K/uL (130-400); RDW Coefficient of Variation 13.5 % (11.5-14.5); RDW Standard Deviation 44.4 fL (36.4-46.3); Red Blood Count 3.04 M/uL (4.2-5.4); White Blood Count 8.38 K/uL (4.8-10.8)
[2019-04-05 06:27] LABS: BUN Creatinine Ratio 19.2 (10-20); Calcium 8.8 mg/dl (8.5-10.1); Creatinine Clr Calc Pharmacy 49.9 ml/min; Est GFR (Non-African American) 43.2; Potassium 3.6 mmol/L (3.5-5.1)
[2019-04-05 07:40] VITALS: TEMP 98.1
[2019-04-05] MEDS: TRAMADOL HCL 50 MG TABLET PO PRN (07:41)
--- NOTE | 2019-04-05 08:36 | Progress Note ---
DATE: 04/05/2019 Followup examination for cervical spine trauma. HISTORY OF PRESENT ILLNESS: Dilia is delightful. She is 73. She fell down some stairs on Thursday, suffered an injury to her cervical spine, left olecranon. She had some significant osteophyte formation and some C7 fracture as well at that time. My initial impression because of the multilevel disease and injury that we could treat her nonoperatively. In the morning of 04/04/2019, I ordered an MRI scan and some plain x-rays and indeed she does have some instability patterns of concern with a grade 2 spondylolisthesis of C6-C7, new from the CT scan just a few hours earlier. She also has her underlying fracture of the C7 vertebrae, significant degenerative changes, osteophyte complex as well and a lateral mass fracture of C1. Also, there is an occipital condylar fracture, not well appreciated on x-ray, but appreciated on CT scan. PLAN: At this point in time, in my opinion, I feel that it is turning into a surgical issue. The surgery in my opinion would span from C6 down to T1 from the anterior part of her spine with anterior supported and backed up by a posterior construct as well, more than likely from cervical C5 down to T1-T2. I have emphasized that is just an opinion and I am not an expert cervical spine trauma surgeon. PLAN: At this situation, I think it is best served in a trauma center. The patient has some connections with [facility]. I think that is the appropriate pathway. I ____ by our other spine surgeons here in [place] and we really do not have in our opinion, the expertise to handle the issue with a high degree of certainty. It really is an outlier somewhat for Lis Avila. This was all explained to the family. I will be speaking with her primary physician here, Dr. Quintero. We will try to make some arrangements for discharge. I would recommend that she does get this repaired and stabilized prior to returning to [place].
[2019-04-05] MEDS ORDERED: CHOLECALCIFEROL 1,000 UNITS TAB PO SCH (09:00)
[2019-04-05] MEDS ORDERED: ASPIRIN 81 MG ECTAB PO SCH (09:00)
[2019-04-05] MEDS ORDERED: VALSARTAN 80 MG TAB PO SCH (09:00)
[2019-04-05] MEDS: MULTIVITAMIN TAB PO SCH (09:03)
[2019-04-05] MEDS: DOCUSATE SODIUM 100 MG CAP PO SCH (09:03)
[2019-04-05] MEDS: ROSUVASTATIN CALCIUM 20 MG TAB PO SCH (09:03)
[2019-04-05] MEDS: FAMOTIDINE 20 MG TAB PO SCH (09:03)
[2019-04-05 09:06] VITALS: BP 109/69; PULSE 79
--- NOTE | 2019-04-05 10:11 | Orthopedic Progress Note ---
Date of Service April 05, 2019 Assessment & Plan (1) Lupus: Continue Plaquenil (2) Open olecranon fracture: She had a grade 1 open olecranon fracture which was treated with fragments excision and repair of the partial defect less than 50% of the triceps. She will be continued in the splint. Our plan would be to leave her in the splint for the time being and eventually work her out into a brace and start some PT with restrictions on the amount of flexion and active extension. She was scheduled a follow-up appointment with our office on 04-12-19 at 1pm. We will keep this appointment for now. If she is not back from [place], we would andrews mmend she remain in splint and f/u with Dr Ho office when she returns. Patient is from [place], but was here visiting family. She plans to stay here for now in the short term. (3) Left hip pain: X-rays and CT were negative. Seems to be improving we will continue to monitor. As far as I am concerned she can weight-bear as tolerated on both lower extremities. PT and OT for ambulatory status and transfers can be initiated on my part. We would just have to make sure it was okay with Dr. Arndt in regards to her spine. (4) Fall (on) (from) other stairs and steps, initial encounter: Subjective Patient was transferred to [facility]. She is sitting in bedside chair. Neck brace donned. Left elbow splint donned. She said she has minimal left elbow pain. Majority of pain is neck and right sided scapular pain. Dr Shore saw her this am after reviewing further studies. He discussed results with ortho spine jean pierre parry at [place] and it was agreed upon, surgical intervention is needed for instability of fracture. Awaiting further info regarding transfer. Patient otherwise in good spirits. Tolerated PO diet, able to void. Denies CP, SOB, f/c/s. Physical Exam Physical Exam: Cervical collar donned. Left elbow splint donned. NV intact left UE. able to wiggle fingers. Sensation intact to light touch. Brisk capillary refill. Minimal swelling noted to hand. Able to perform AROM of left shoulder. Results & Data Vital Signs (Past 12 Hours) Vital Signs Temp Pulse Pulse Resp BP Pulse Ox 04/05/19 09:05 79 109/69 04/05/19 07:39 36.7 C 71 16 120/77 95 04/04/19 23:01 37.0 C 75 15 121/74 95 Laboratory Results 04/05/19 04/05/19 Range/Units 05:28 05:28 WBC 8.38 (4.8-10.8) K/uL RBC 3.04 L (4.2-5.4) M/uL Hgb 9.2 L (12.0-16.0) g/dL Hct 27.5 L (37-47) % MCV 90.5 (80-100) fL MCH 30.3 (25-34) pg MCHC 33.5 (32-36) g/dL RDW Std Deviation 44.4 (36.4-46.3) fL RDW Coeff of Oswaldo 13.5 (11.5-14.5) % Plt Count 123 L (130-400) K/uL MPV 11.7 H (7.4-10.4) fL Immature Gran % (Auto) 0.1 % Neut % (Auto) 70.7 % Lymph % (Auto) 16.9 % Eddy % (Auto) 11.1 % Eos % (Auto) 1.0 % Baso % (Auto) 0.2 % Immature Gran # (Auto) 0.01 (0.00-0.02) K/uL Neut # (Auto) 5.92 (1.4-6.5) K/uL Lymph # (Auto) 1.42 (1.2-3.4) K/uL Eddy # (Auto) 0.93 H (0.11-0.59) K/uL Eos # (Auto) 0.08 (0-0.5) K/uL Baso # (Auto) 0.02 (0-0.2) K/uL Sodium 138 (136-145) mmol/L Potassium 3.6 (3.5-5.1) mmol/L Chloride 105 (98-107) mmol/L Carbon Dioxide 26 (21-32) mmol/L Anion Gap 7.0 (3-11) BUN 24 H (7-18) mg/dl Creatinine 1.23 H (0.6-1.2) mg/dl Est Cr Clr Drug Dosing 49.9 ml/min Est GFR ( Amer) 50.0 Est GFR (Non-Af Amer) 43.2 BUN/Creatinine Ratio 19.2 (10-20) Glucose 92 (70-99) mg/dl Calcium 8.8 (8.5-10.1) mg/dl
--- NOTE | 2019-04-05 10:15 | Discharge Summary ---
Date of Service April 05, 2019 Admission HPI Per Admitting Provider 73yo F w/ hx of arthritis and HTN who presents with cervical fractures after a fall down 10 steps. She reports she was at her son's house and turned the wrong direction in the dark and fell down 10 steps. She was brought to the ED and found to have cervical fractures in C1, C6, and C7 with the C6 fracture being possibly unstable. There was also intramuscular hemorrhage identified within the right lateral paraspinous musculature with surrounding inflammation this extends from C4-C5 to C7-T1 seen. She has completely normal sensation and motor skills in the fingers and hands on both sides. She also has an open fracture in the left elbow which Dr. Ho plans to wash-out tonight. She reports she is normally very health and works out at water aerobics for an hour 1-2 times per week without chest pain or shortness of breath. Principal Diagnosis Cervical spine fractures-unstable fracture at C7 Discharge Exam Constitutional WD/WN, vitals as above Eyes PERRL, conjunctivae normal, anicteric sclerae ENMT external ear and nose normal, oropharynx normal Neck trachea midline, no thyromegaly + abnormal visual inspection (Groton J collar in place) Respiratory normal respiratory effort, lungs clear to auscultation Cardiovascular RRR, no murmur, no edema Gastrointestinal (Abdomen) normal bowel sounds, soft, nontender, no hepatosplenomegaly Musculoskeletal Extremities: strength 5/5 throughout (Throughout upper and lower extremities except elbow not tested on the left); + extremities abnormal to inspection (Left upper extremity in sling with dressing in place over left elbow), no cyanosis and no clubbing Skin no rashes, warm and dry Neurologic CN's II-XI intact bilaterally, deep tendon reflexes 2+ bilaterally, moves all extremities and awake; no focal motor deficits Motor/Sensory: + sensory deficit (right 4thand 5th fingers decreased sensation to light touch) Psychiatric A+Ox3, euthymic affect Discharge Data Allergies Allergy/AdvReac Type Severity Reaction Status Date / Time Penicillins Allergy Mild Hives Unverified 04/03/19 14:01 Consultations 04/03/19 17:20 ED Decision to Admit Stat 04/03/19 23:08 Consult Case Management - Discharge Planning Routine Consult Case Management - Discharge Planning Routine Consult Orthopedic Surgery Routine Procedures Performed Operation Date: 04/03/19 18:30 Actual Procedures s Irrigation and Debridement, - Ronaldo Ho MD p Fragment Excision, Tricep Tendon Repair - Ronaldo Ho MD Ordered Studies 04/03/19 FL elbow LT 2V Routine FL fluoroscopy <1hr Routine 04/03/19 13:02 CT cervical spine wo con Stat CT head/brain wo con Stat 04/03/19 13:06 US point of care ultrasound Stat 04/03/19 13:15 CT abd pelvis IV con only Stat 04/03/19 17:14 CT elbow LT wo con Stat 04/04/19 07:22 MR cervical spine wo con Routine C-spine xray series Shoulder xray Pelvis xray Femur xray Elbow xray x 2 CXR Hospital Course (1) Compression fracture of C7 vertebra: Presented with fall down 10 stairs resulting in multiple compression fractures C6-T3 with possible unstable C7 fracture seen on CT cervical spine Cervical spine x-rays with anterolisthesis grade 2 of C6 and C7 MRI cervical spine: 1. Ligamentous edema in the interspinous region and along the left paraspinal musculature consistent with acute injury. 2. Multilevel compression fractures suggesting a hyperflexion injury pattern at C7-T3 most severely effecting C7. 3. Involvement of the right pedicle and facets of C7 and to a minimal extent the inferior facet of C6 on the right best appreciated on CT. 4. No evidence of an epidural hematoma. 5. No convincing evidence of ligamentous injury at C1 at the reported occipital condylar fracture. Appreciate orthopedic spine surgery consultation Discussed the case with orthopedic spine surgery at multiple points throughout hospitalization--> initially recommended nonoperative treatment -was placed in cervical spine collar-chest attachment ordered but not placed by time of discharge On hospital day#2, Orthopedics reviewed repeat imaging and given shifting and now with anterolisthesis of C6 on C7--> decision made to transfer [facility] availability and likely surgical treatment given instability of fracture and multiple other fractures present -Continue pain control with acetaminophen and tramadol as needed -Continue neurochecks Q4h -held ASA prior to transfer (2) C6 cervical fracture: As above (3) Elbow fracture, left: CT elbow on 04/03 shows comminuted fracture of the olecranon process as above with overlying soft tissue injury/open fracture. -Now status post fragments excision and repair of the partial defect less than 50% of the triceps. with Dr. Ho on 04/03 -Orthopedic surgery recommends that she will be continued in the splint, received postop IV antibiotics. Depending on whether she goes back to [place] or not will determine treatment. If she stays here we will leave her in the splint for the time being and eventually work her out into a brace and start some PT with restrictions on the amount of flexion and active extension. -Continue pain control -Continue splint and shoulder sling for now (4) Lupus: No current flare. Pain under control with opiate pain meds for her neck/elbow. - Continue Plaquenil (5) Arthritis: - Restart calcium and vitamin D once able to sit up more and swallow more easily. - Pain control with opiates given present surgical needs (6) Hypertension: Blood pressure controlled -continue valsartan (7) Left hip pain: Seen by orthopedics X-rays and CT were negative for fracture. She has a history of bilateral total hip arthroplasties -Orthopedics recommends weight-bear as tolerated once cleared by Spine Surgery (8) Fall: Mechanical fall down the stairs (9) DVT prophylaxis: SCDs Disposition-transfer urgently to [facility], accepting physician is Dr. Palacios of Trauma Surgery. Spoke also with Dr. Barron of SPine Surgery who recommended patient lie flat Placed Foely again prior to transfer Discussed her transfer with Dr. Shore of Ortho SPine and with patient and her daughter in law at bedside Total Time Total Time Spent Total Time Spent (In Minutes): >30 min Total Time Includes: Examination of the Patient, Discharge Planning, Medication Reconciliation and Communication With Other Providers Discharge Plan Discharge Items Patient Disposition: Transfer Acute Care Hospital Reason For Visit: FALL AND CERVICAL FRACTURE Discharge Diagnosis: Unstable cervical spine C6 fracture Condition on Discharge: Fair Activity: As commented below Lifting: None Exercise/Sports: Rest today Non-emergency contact: Primary Care Provider and Surgeon Call non-emergency contact if: you have any medication questions and your symptoms worsen Follow-up/Referrals: Lisa Barajas PA-C [Physician Secondary School Teacher] - 04/12/19 1:00 pm PCP,NO [Primary Care Provider] - None Diet: Regular Addtl Attending Provider Instructions: REGARDING LEFT ELBOW Pending Studies at Discharge: No Stand-Alone Forms: My [facility] Skilled Items Patient informed of condition?: Yes DNR: No Discharge Level of Care: Other Communicable Disease: No Discharge Prognosis: Stable Lines: Peripheral IV Urinary Catheter: Yes Medications and DC Order Prescriptions: New tramadol 50 mg Tablet 50 - 100 mg PO Q4H PRN (Reason: pain) Qty: 1 RF: 0 Continued acetaminophen [Tylenol Arthritis Pain] 650 mg Tablet Extended Release 650 mg PO DAILY RF: 0 calcium carbonate [Calcium 600] 600 mg calcium (1,500 mg) Tablet 600 mg PO DAILY RF: 0 famotidine 20 mg tablet 20 mg PO BID RF: 0 hydroxychloroquine 200 mg tablet 400 mg PO HS RF: 0 valsartan 160 mg tablet 160 mg PO DAILY RF: 0 cholecalciferol (vitamin D3) [Vitamin D3] 1,000 unit Capsule 1,000 unit PO DAILY RF: 0 rosuvastatin 40 mg tablet 40 mg PO DAILY RF: 0 Discontinued aspirin 81 mg Tablet,Delayed Release (Dr/Ec) 81 mg PO DAILY RF: 0 Discharge Orders: Discharge Order (Routine); Ordered 04/05/19 Ordered By: Dulce Quintero Admission Data Admit Date/Time: 04/03/19 18:28 Attending Provider: Dulce Quintero Admit Provider: Larry Mcclure Primary Care Provider: PCP,NO Other Providers: Larry Mcclure ; Uriel Shore Other Interventions: Discharge Summary Assessment (RN) Last Done: 04/05/19 10:22 DC Date/Time DO NOT enter until pt leaves facility: 04/05/19 11:08
--- NOTE | 2019-04-25 13:16 | Coding Query ---
DEBRIDEMENT DOCUMENTATION To promote full compliance with coding requirements relating to patient care, physician participation is requested in all cases of day haul or farm charter bus driver uncertainty. Please assist us with the question(s) below: Please place an X in the parenthesis (x). If other, please document the finding: Type of Debridement: ( x ) Excisional Debridement- Cutting away necrotic, devitalized tissue or slough to the level of viable tissue using a sharp instrument (i.e. scalpel, scissors, etc.) ( ) Non Excisional Debridement- The removal of necrotic, devitalized tissue or slough by means of scraping, mechanical brushing, flushing, or washing (i.e. irrigation,whirlpool);minor removal of loose fragments. ( ) Other (please specify): Instrument Used: (x ) Scissors ( x ) Scalpel ( ) Curette ( x ) Other (please specify):bovie Depth of Debridement: ( ) Skin ( Skin and Subcutaneous Tissue ( ) Skin, Subcutaneous Tissue and Muscle ( Skin, Subcutaneous Tissue, Muscle and Bone ( x ) Other (please specify):bone/bursa Please Specify the Size of Debridement in cm2: 4 Thank you Ritu PETERS
== END 2019-04-05 11:08 | disposition short-term general hospital (02) | DRG 501 ==
LOC: ED 12:25 → OR 18:16 → SUATTDRO 18:28 → 2E 18:28 → 3E 04-04 12:57